=== PATIENT | male | born 1995 | race Caucasian/White ===

== ENCOUNTER 2020-02-18 08:29 | Emergency (ER) | payer OTHER ==
[2020-02-18 08:48] VITALS: BP 157/118; PULSE 100
--- NOTE | 2020-02-18 08:50 | EDM.PDOC ---
ED HPI GENERAL MEDICAL PROBLEM - General Chief Complaint: Respiratory Problem Stated Complaint: COUGH/TESTED AT CLINIC FOR COVID/RESULTS NOT BACK Time Seen by Provider: 02/18/20 08:49 Source of Information: Reports: Patient History Limitations: Reports: No Limitations - History of Present Illness INITIAL COMMENTS - FREE TEXT/NARRATIVE: 24-year-old male attends the ED at the request of walk-in clinic. He was seen there 2 days ago with a paroxysmal nonproductive cough that is had for the better part of 10 days. He states he was out in [place] 3 weeks ago working and felt that his allergies flared up badly at that time by this he means marked nasal congestion and itching of his eyes but no true asthma symptoms with wheezing. He has no history of asthma. He was given a codeine cough syrup which is not helping control his cough. This morning he coughed so hard he nearly passed out. Patient did have a COVID screen done 2 days ago and it was a send out by [facility] system he has not received the results yet. He does not know that he was been exposed to COVID by anybody. He has had some chills but no defined fever. Appetite remains half of normal. He is not expectorating any sputum. No hemoptysis. No diarrhea no change in smell. He never had a sore throat with at any time during this illness. Nasal congestion seems to be better. Onset: Gradual Onset Date: 02/12/20 (Has been coughing for the better part of a week.) Duration: Day(s):, Getting Worse Location: Reports: Chest (Severe paroxysmal nonproductive cough.) Quality: Reports: Other (Very paroxysmal cough to the point of near syncope this morning.) Severity: Moderate Improves with: Reports: None Worsens with: Reports: Other (Cough seemed to get worse while he was in the shower this morning.) Context: Denies: Activity, Exercise, Lifting, Sick Contact, Trauma, Other Associated Symptoms: Reports: Cough, Loss of Appetite, Malaise, Shortness of B reath. Denies: No Other Symptoms, Confusion, Chest Pain (Nonproductive), cough w sputum, Diaphoresis, Fever/Chills, Headaches, Nausea/Vomiting, Rash, Seizure, Syncope, Weakness Treatments [employer]OR: Reports: Other (see below) (None.) - Related Data Allergies Allergy/AdvReac Type Severity Reaction Status Date / Time No Known Allergies Allergy Verified 02/18/20 08:48 Home Meds: Home Meds Hydrocodone/Chlorphen P-Stirex [Hydrocodone-Chlorphen ER Susp] 5 ml PO Q12H PRN #90 ml 02/18/20 [Rx] Past Medical History - Past Health History Medical/Surgical History: Denies Medical/Surgical History Other HEENT History: tongue swelling ? allergic reaction Social & Family History - Living Situation & Occupation Occupation: Student ED ROS GENERAL - Review of Systems Review Of Systems: See Below Constitutional: Reports: Fever, Chills ([place]sey is an intermittent low-grade fever), Malaise ( occasional chills.), Fatigue, Decreased Appetite, Other (Change in sense of smell.). Denies: Weakness, Weight Loss HEENT: Reports: Rhinitis (Allergic rhinitis.) Respiratory: Reports: Shortness of Breath, Cough. Denies: Wheezing, Pleuritic Chest Pain, Sputum, Hemoptysis (Your paroxysmal nonproductive cough.) Cardiovascular: Reports: Chest Pain (Enteral upper chest pain from coughing so much.). Denies: Blood Pressure Problem, Claudication (Blood pressure is markedly elevated in the ED at 157 118. Patient is not known to be hypertensive.), Orthopnea Endocrine: Reports: Fatigue GI/Abdominal: Reports: No Symptoms : Reports: No Symptoms Musculoskeletal: Reports: No Symptoms Skin: Reports: No Symptoms Neurological: Reports: No Symptoms. Denies: Confusion, Dizziness, Headache, Numbness, Pre-Existing Deficit, Seizure, Syncope, Trouble Speaking, Difficulty Walking, Weakness Psychiatric: Reports: No Symptoms Hematologic/Lymphatic: Reports: No Symptoms Immunologic: Reports: No Symptoms ED EXAM, GENERAL - Physical Exam Exam: See Below Exam Limited By: No Limitations General Appearance: Alert, WD/WN, No Apparent Distress, Other (Temperature is 36.4. Heart rate 100 and sinus. Respiratory is 18 sats are only 94% on room air. BP 157 118 but it did come down to 146/89.) Eye Exam: Bilateral Eye: Normal Inspection, PERRL (No scleral icterus or blepharal pallor.) Ears: Normal TMs Throat/Mouth: Normal Inspection, Normal Lips, Normal Teeth, Normal Oropharynx Head: Atraumatic, Normocephalic Neck: Normal Inspection, Supple, Non-Tender, Full Range of Motion. No: Carotid Bruit, Lymphadenopathy (L), Lymphadenopathy (R) Respiratory/Chest: No Respiratory Distress, No Accessory Muscle Use, Rhonchi (Fine rhonchi particularly posterior right upper lung field.). No: Lungs Clear, Normal Breath Sounds, Chest Non-Tender, Wheezing Cardiovascular: Normal Peripheral Pulses, Regular Rate, Rhythm, No Edema, No Gallop, No Murmur, No Rub Peripheral Pulses: 3+: Carotid (L), Carotid (R), Posterior Tibial (L), Posterior Tibial (R), Dorsalis Pedis (L), Dorsalis Pedis (R) GI/Abdominal: Normal Bowel Sounds, Soft, Non-Tender, No Organomegaly, No Abnormal Bruit, No Mass, Pelvis Stable, Other (Very large fellow. Abdominal girth limits ability to palpate solid organs.). No: Guarding, Rigid, Rebound, Tender Back Exam: Normal Inspection, Full Range of Motion. No: CVA Tenderness (L), CVA Tenderness (R) Extremities: Normal Inspection, Normal Range of Motion, Non-Tender, No Pedal Edema Neurological: Alert, Oriented, CN II-XII Intact, Normal Cognition Psychiatric: Normal Affect, Normal Mood Skin Exam: Warm, Dry, Intact, Normal Color, No Rash EKG INTERPRETATION EKG Date: 02/18/20 Time: 09:48 Rhythm: Other Rate (Beats/Min): 105 Catron: LAD-Left Catron Deviation (Left axis deviation of -79 degrees) P-Wave: Present QRS: Other (Decreased voltage precordial leads. RSR prime wave in V1 considered normal variant. Consider left anterior fascicular block.) ST-T: Normal QT: Normal EKG Interpretation Comments: Abnormal ECG Course - Vital Signs Last Recorded V/S: Last Vital Signs Temp 36.4 C 02/18/20 08:45 Pulse 100 02/18/20 08:45 Resp 18 02/18/20 08:45 BP 157/118 H 02/18/20 08:45 Pulse Ox 94 L 02/18/20 08:45 - Orders/Labs/Meds Orders: Active Orders 24 hr Category Date Time Status EKG Documentation Completion [RC] STAT Care 02/18/20 09:01 Active CULTURE BLOOD [BC] Stat Lab 02/18/20 09:22 Received CULTURE BLOOD [BC] Stat Lab 02/18/20 09:41 Received Dextrose 5%-0.9% NaCl [Dextrose 5%-Normal Saline] 1,000 Med 02/18/20 09:00 Active ml IV ASDIRECTED Blood Culture x2 Reflex Set [OM.PC] Stat Oth 02/18/20 09:00 Ordered Medication Orders Dextrose/Sodium Chloride (Dextrose 5%-Normal Saline) 1,000 mls @ 150 mls/hr IV ASDIRECTED [facility] Labs: Laboratory Tests 02/18/20 02/18/20 02/18/20 Range/Units 09:22 09:22 09:22 WBC 4.98 (4.23-9.07) K/mm3 RBC 5.71 (4.63-6.08) M/mm3 Hgb 16.1 (13.7-17.5) gm/dl Hct 48.6 (40.1-51.0) % MCV 85.1 (79.0-92.2) fl MCH 28.2 (25.7-32.2) pg MCHC 33.1 (32.2-35.5) g/dl RDW Std Deviation 41.9 (35.1-43.9) fL Plt Count 145 L (163-337) K/mm3 MPV 11.2 (9.4-12.3) fl Neut % (Auto) 70.5 H (34.0-67.9) % Lymph % (Auto) 15.9 L (21.8-53.1) % [place] % (Auto) 12.4 H (5.3-12.2) % Eos % (Auto) 0.8 (0.8-7.0) Baso % (Auto) 0.4 (0.1-1.2) % Neut # (Auto) 3.51 (1.78-5.38) K/mm3 Lymph # (Auto) 0.79 L (1.32-3.57) K/mm3 [place] # (Auto) 0.62 (0.30-0.82) K/mm3 Eos # (Auto) 0.04 (0.04-0.54) K/mm3 Baso # (Auto) 0.02 (0.01-0.08) K/mm3 D-Dimer, Quantitative < 0.19 L (0.19-0.50) mg/L Sodium 137 (136-145) mEq/L Potassium 4.2 (3.5-5.1) mEq/L Chloride 101 (98-107) mEq/L Carbon Dioxide 32 (21-32) mEq/L Anion Gap 8.2 (5-15) BUN 5 L (7-18) mg/dL Creatinine 1.0 (0.7-1.3) mg/dL Est Cr Clr Drug Dosing TNP Estimated GFR (MDRD) > 60 (>60) mL/min BUN/Creatinine Ratio 5.0 L (14-18) Glucose 135 H (74-106) mg/dL Calcium 8.5 (8.5-10.1) mg/dL Magnesium 2.0 (1.8-2.4) mg/dl Ferritin (26-388) ng/ml Total Bilirubin 0.6 (0.2-1.0) mg/dL AST 30 (15-37) U/L ALT 50 (16-63) U/L Alkaline Phosphatase 50 (46-116) U/L Lactate Dehydrogenase 234 H (85-227) U/L Troponin I < 0.017 (0.00-0.056) ng/mL C-Reactive Protein 2.8 H* (<1.0) mg/dL Total Protein 7.5 (6.4-8.2) g/dl Albumin 3.7 (3.4-5.0) g/dl Globulin 3.8 gm/dL Albumin/Globulin Ratio 1.0 (1-2) SARS Virus RNA (PCR) (NEGATIVE) 02/18/20 02/18/20 Range/Units 09:22 09:45 WBC (4.23-9.07) K/mm3 RBC (4.63-6.08) M/mm3 Hgb (13.7-17.5) gm/dl Hct (40.1-51.0) % MCV (79.0-92.2) fl MCH (25.7-32.2) pg MCHC (32.2-35.5) g/dl RDW Std Deviation (35.1-43.9) fL Plt Count (163-337) K/mm3 MPV (9.4-12.3) fl Neut % (Auto) (34.0-67.9) % Lymph % (Auto) (21.8-53.1) % [place] % (Auto) (5.3-12.2) % Eos % (Auto) (0.8-7.0) Baso % (Auto) (0.1-1.2) % Neut # (Auto) (1.78-5.38) K/mm3 Lymph # (Auto) (1.32-3.57) K/mm3 [place] # (Auto) (0.30-0.82) K/mm3 Eos # (Auto) (0.04-0.54) K/mm3 Baso # (Auto) (0.01-0.08) K/mm3 D-Dimer, Quantitative (0.19-0.50) mg/L Sodium (136-145) mEq/L Potassium (3.5-5.1) mEq/L Chloride (98-107) mEq/L Carbon Dioxide (21-32) mEq/L Anion Gap (5-15) BUN (7-18) mg/dL Creatinine (0.7-1.3) mg/dL Est Cr Clr Drug Dosing Estimated GFR (MDRD) (>60) mL/min BUN/Creatinine Ratio (14-18) Glucose (74-106) mg/dL Calcium (8.5-10.1) mg/dL Magnesium (1.8-2.4) mg/dl Ferritin 232 (26-388) ng/ml Total Bilirubin (0.2-1.0) mg/dL AST (15-37) U/L ALT (16-63) U/L Alkaline Phosphatase (46-116) U/L Lactate Dehydrogenase (85-227) U/L Troponin I (0.00-0.056) ng/mL C-Reactive Protein (<1.0) mg/dL Total Protein (6.4-8.2) g/dl Albumin (3.4-5.0) g/dl Globulin gm/dL Albumin/Globulin Ratio (1-2) SARS Virus RNA (PCR) Positive H (NEGATIVE) Meds: Medications Generic Name Dose Route Start Last Admin Trade Name Freq PRN Reason Stop Dose Admin Dextrose/Sodium Chloride 1,000 mls @ 150 mls/hr 02/18/20 09:00 Dextrose 5%-Normal Saline IV ASDIRECTED [facility] - Radiology Interpretation Free Text/Narrative:: 24-year-old male presents to the ED with a 6-day history of a paroxysmal cough which is worsening. Coughed so hard this morning that he nearly passed out. He was seen in the walk-in clinic 2 days ago at [facility] and did have a COVID screen test sent out. He does not yet know the results. He has no history of asthma. He is not bringing up any sputum with his cough. Sats are 94% on room air. He is not in any respiratory distress. Lungs sounds are revealing of a few crackles in the right upper base and a few rhonchi. Nose and throat exam is otherwise normal. Plan COVID screen. Chest x-ray 1 view to be done. Routine labs to be obtained including blood cultures x2 looking for COVID illness. - Re-Assessments/Exams Free Text/Narrative Re-Assessment/Exam: 02/18/20 09:39 audible chest x-ray done but is relatively poor quality due to the patient's size. There is questionably an infiltrate in the right upper lobe in the posterior segment. There is questionable left perihilar infiltrate as well suggesting early pneumonia. Cardiac silhouette is normal. 02/18/20 10:16 White count is normal at 4.98. Differential shows 70.5% neutrophils in the auto differential. Hemoglobin is 16.1 with hematocrit of 48.6 suggesting some degree of hemoconcentration. Platelet counts 145,000. D- dimer is less than 0.19. Sodium 137 with a potassium of 4.2. Chloride 101 with a bicarb of 32. Anion gap is 8.2. BUN is 5 with a creatinine of 1.0 and a GFR greater than 60. Glucose is 135. Calcium is 8.5. Magnesium is 2.0. Serum ferritin level is normal at 232. Liver function studies are normal. LDH is mildly elevated at 234 with upper limits in our lab at 227. Troponin I is less than 0.017. C-reactive protein is 2.8. COVID test is pending 02/18/20 10:46 Covid test is positive. Departure - Departure Time of Disposition: 11:08 Disposition: Home, Self-Care 01 Condition: Fair Clinical Impression: COVID-19 virus detected Pneumonia Qualifiers: Pneumonia type: due to unspecified organism Laterality: bilateral Lung location: upper lobe of lung Qualified Code(s): J18.9 - Pneumonia, unspecified organism - Discharge Information *PRESCRIPTION DRUG MONITORING PROGRAM REVIEWED*: Not Applicable *COPY OF PRESCRIPTION DRUG MONITORING REPORT IN PATIENT KIRSTY: Not Applicable Prescriptions: Hydrocodone/Chlorphen P-Stirex [Hydrocodone-Chlorphen ER Susp] 5 ml PO Q12H PRN #90 ml PRN Reason: cough relief Instructions: COVID-19 Frequently Asked Questions, COVID-19: How to Protect Yourself and Others - [facility] Referrals: PCP,None [Primary Care Provider] - Forms: ED Department Discharge, ED Return to Work/School Form Additional Instructions: Evaluation in the emergency room today in regards to severe paroxysmal cough and low-grade fever for the last 2 to 3 days. No relief with codeine-based cough syrup. X-ray of the chest reveals early pneumonia in the upper lobes of both lungs. COVID 19 test was positive for infection the remainder the labs were normal. Treatment is to be self quarantined for the next 12 days since you have had the illness for 2 days already. Normal quarantine is 14 days. You can use cough syrup [place] 5 mils every 12 hours as necessary for cough relief. Due to your size you may well need to 7.5 mils twice daily for cough relief. It usually takes an hour to work so plan on taking a good hour before lying down to sleep. Plenty of fluids diet as tolerated. Return to medical care if shortness of breath worsens or you get to the point where you cannot eat or drink. Sepsis Event Note (ED) - Evaluation Sepsis Screening Result: No Definite Risk - Focused Exam Vital Signs: Vital Signs Temp Pulse Resp BP Pulse Ox 02/18/20 08:45 36.4 C 100 18 157/118 H 94 L - My Orders Last 24 Hours: My Active Orders 02/18/20 09:00 Dextrose 5%-0.9% NaCl [Dextrose 5%-Normal Saline] 1,000 ml IV ASDIRECTED Blood Culture x2 Reflex Set [OM.PC] Stat 02/18/20 09:01 EKG Documentation Completion [RC] STAT 02/18/20 09:22 CULTURE BLOOD [BC] Stat 02/18/20 09:41 CULTURE BLOOD [BC] Stat - Assessment/Plan Last 24 Hours: My Active Orders 02/18/20 09:00 Dextrose 5%-0.9% NaCl [Dextrose 5%-Normal Saline] 1,000 ml IV ASDIRECTED Blood Culture x2 Reflex Set [OM.PC] Stat 02/18/20 09:01 EKG Documentation Completion [RC] STAT 02/18/20 09:22 CULTURE BLOOD [BC] Stat 02/18/20 09:41 CULTURE BLOOD [BC] Stat
[2020-02-18] MEDS ORDERED: Dextrose 5%-0.9% NaCl 1,000 ML IV SCH (09:00)
--- NOTE | 2020-02-18 09:50 | CR ---
Chest: Portable view of the chest was obtained. Comparison: No previous chest x-rays available. Heart size and mediastinum are normal. Patchy areas of increased density on both sides of chest. Lungs otherwise are clear. Bony structures are unremarkable. Impression: 1. Patchy areas of increased density within both sides of the chest. Findings could certainly represent early viral pneumonia. Diagnostic code #3 Study was dictated in MDT
== END 2020-02-18 11:24 | disposition home or self-care (01) ==
LOC: JD.ED 08:29
DX: U07.1 COVID-19 (principal); J12.89 Other viral pneumonia
CPT/HCPCS: 36415; 71045; 71045-26; 80053; 82728; 83615; 83735; 84484; 85025; 85379; 86140; 87040; 93005; 93010; 99283; 99284-25; U0002

== ENCOUNTER 2020-02-19 20:24 | Inpatient (IN) | payer OTHER ==
--- NOTE | 2020-02-19 20:37 | EDM.PDOC ---
ED HPI GENERAL MEDICAL PROBLEM - General Chief Complaint: Respiratory Problem Stated Complaint: COVID POS FEVER WORSE Time Seen by Provider: 02/19/20 20:37 - History of Present Illness INITIAL COMMENTS - FREE TEXT/NARRATIVE: 24-year-old male presents the emergency room with increasing fever. Patient was seen here yesterday with for 5-day history of of a cough and fever. Up until yesterday his COVID tested been negative yesterday it was positive. Today he is worried about increasing fever. Upon arrival here he is pushing hypoxia with a pulse ox of 88%. This responds to 3 L of oxygen. Getting him to 96%. Patient has a frequent cough. Patient denies any loss of taste or smell no abdominal symptoms, nausea vomiting or diarrhea. He does not smoke. 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 Chest Pain Score (Numeric/FACES): 7 - Related Data Allergies Allergy/AdvReac Type Severity Reaction Status Date / Time No Known Allergies Allergy Verified 02/19/20 20:40 Home Meds: Home Meds Hydrocodone/Chlorphen P-Stirex [Hydrocodone-Chlorphen ER Susp] 5 ml PO Q12H PRN #90 ml 02/18/20 [Rx] Past Medical History - Past Health History Medical/Surgical History: Denies Medical/Surgical History Other HEENT History: tongue swelling ? allergic reaction Social & Family History - Caffeine Use Caffeine Use: Reports: Soda - Living Situation & Occupation Occupation: Student ED ROS GENERAL - Review of Systems Review Of Systems: See Below Constitutional: Reports: Fever, Weakness, Fatigue. Denies: Chills HEENT: Reports: No Symptoms, Rhinitis Respiratory: Reports: Shortness of Breath, Cough. Denies: Wheezing, Pleuritic Chest Pain, Sputum Cardiovascular: Reports: No Symptoms Endocrine: Reports: No Symptoms GI/Abdominal: Reports: No Symptoms : Reports: No Symptoms Musculoskeletal: Reports: No Symptoms Skin: Reports: No Symptoms Neurological: Reports: No Symptoms ED EXAM, GENERAL - Physical Exam Exam: See Below Exam Limited By: No Limitations General Appearance: Alert, No Apparent Distress, Obese Eye Exam: Bilateral Eye: Normal Inspection Ears: Normal External Exam, Normal Canal, Hearing Grossly Normal, Normal TMs Nose: Normal Inspection, Normal Mucosa, No Blood Throat/Mouth: Normal Inspection, Normal Lips, Normal Teeth, Normal Gums, Normal Oropharynx, Normal Voice, No Airway Compromise Head: Atraumatic, Normocephalic Neck: Normal Inspection, Supple, Non-Tender, Full Range of Motion. No: Lymphadenopathy (L), Lymphadenopathy (R) Respiratory/Chest: Decreased Breath Sounds, Other (Few scattered crackles no wheezes or rhonchi appreciated) GI/Abdominal: Normal Bowel Sounds, Soft, Non-Tender Back Exam: Normal Inspection. No: CVA Tenderness (L), CVA Tenderness (R) Extremities: Normal Inspection, No Pedal Edema Neurological: Alert, Oriented, Normal Cognition Skin Exam: Warm, Dry, Intact Course - Vital Signs Last Recorded V/S: Last Vital Signs Temp 35.5 C L 02/19/20 20:35 Pulse 128 H 02/19/20 20:35 Resp 16 02/19/20 20:35 BP 137/70 02/19/20 20:35 Pulse Ox 92 L 02/19/20 20:43 - Orders/Labs/Meds Orders: Active Orders 24 hr Category Date Time Status Chest 1V Frontal [CR] Stat Exams 02/19/20 20:58 Taken CBC WITH MANUAL DIFF [HEME] Stat Lab 02/19/20 20:45 Results Labs: Laboratory Tests 02/19/20 02/19/20 02/19/20 Range/Units 20:45 20:45 20:45 WBC 5.42 (4.23-9.07) K/mm3 Corrected WBC RBC 5.87 (4.63-6.08) M/mm3 Hgb 16.5 (13.7-17.5) gm/dl Hct 49.4 (40.1-51.0) % MCV 84.2 (79.0-92.2) fl MCH 28.1 (25.7-32.2) pg MCHC 33.4 (32.2-35.5) g/dl RDW Std Deviation 40.8 (35.1-43.9) fL Plt Count 157 L (163-337) K/mm3 MPV 11.4 (9.4-12.3) fl Neut % (Auto) 57.3 (34.0-67.9) % Lymph % (Auto) 28.6 (21.8-53.1) % [place] % (Auto) 12.0 (5.3-12.2) % Eos % (Auto) 1.3 (0.8-7.0) Baso % (Auto) 0.4 (0.1-1.2) % Neut # (Auto) 3.11 (1.78-5.38) K/mm3 Lymph # (Auto) 1.55 (1.32-3.57) K/mm3 [place] # (Auto) 0.65 (0.30-0.82) K/mm3 Eos # (Auto) 0.07 (0.04-0.54) K/mm3 Baso # (Auto) 0.02 (0.01-0.08) K/mm3 Neutrophils % (Manual) (40-60) % Band Neutrophils % (0-10) % Lymphocytes % (Manual) (20-40) % Atypical Lymphs % % Monocytes % (Manual) (2-10) % Eosinophils % (Manual) (0.8-7.0) % Basophils % (Manual) (0.2-1.2) Manual Slide Review Platelet Estimate RBC Morph Comment D-Dimer, Quantitative 0.22 (0.19-0.50) mg/L Puncture Site ABG pH (7.35-7.45) ABG pCO2 (35.0-45.0) mmHg ABG pO2 (80.0-100.0) mmHg ABG HCO3 (22.0-26.0) meq/L ABG O2 Saturation (96.0-97.0) % ABG Base Excess (-2-2.0) Giovany Test O2 Delivery Device Oxygen Flow Rate Sodium 137 (136-145) mEq/L Potassium 3.9 (3.5-5.1) mEq/L Chloride 100 (98-107) mEq/L Carbon Dioxide 28 (21-32) mEq/L Anion Gap 12.9 (5-15) BUN 4 L (7-18) mg/dL Creatinine 1.0 (0.7-1.3) mg/dL Est Cr Clr Drug Dosing 121.32 mL/min Estimated GFR (MDRD) > 60 (>60) mL/min BUN/Creatinine Ratio 4.0 L (14-18) Glucose 118 H (74-106) mg/dL Calcium 8.6 (8.5-10.1) mg/dL Magnesium 1.8 (1.8-2.4) mg/dl Ferritin (26-388) ng/ml Total Bilirubin 0.6 (0.2-1.0) mg/dL AST 43 H (15-37) U/L ALT 74 H (16-63) U/L Alkaline Phosphatase 51 (46-116) U/L Lactate Dehydrogenase (85-227) U/L Creatine Kinase (39-308) U/L Troponin I < 0.017 (0.00-0.056) ng/mL C-Reactive Protein 4.1 H* (<1.0) mg/dL Total Protein 7.9 (6.4-8.2) g/dl Albumin 3.8 (3.4-5.0) g/dl Globulin 4.1 gm/dL Albumin/Globulin Ratio 0.9 L (1-2) Mycoplasma pneumon IgM (NEGATIVE) 02/19/20 02/19/20 02/19/20 Range/Units 20:45 20:45 20:45 WBC (4.23-9.07) K/mm3 Corrected WBC RBC (4.63-6.08) M/mm3 Hgb (13.7-17.5) gm/dl Hct (40.1-51.0) % MCV (79.0-92.2) fl MCH (25.7-32.2) pg MCHC (32.2-35.5) g/dl RDW Std Deviation (35.1-43.9) fL Plt Count (163-337) K/mm3 MPV (9.4-12.3) fl Neut % (Auto) (34.0-67.9) % Lymph % (Auto) (21.8-53.1) % [place] % (Auto) (5.3-12.2) % Eos % (Auto) (0.8-7.0) Baso % (Auto) (0.1-1.2) % Neut # (Auto) (1.78-5.38) K/mm3 Lymph # (Auto) (1.32-3.57) K/mm3 [place] # (Auto) (0.30-0.82) K/mm3 Eos # (Auto) (0.04-0.54) K/mm3 Baso # (Auto) (0.01-0.08) K/mm3 Neutrophils % (Manual) 67 H (40-60) % Band Neutrophils % 0 (0-10) % Lymphocytes % (Manual) 27 (20-40) % Atypical Lymphs % 0 % Monocytes % (Manual) 6 (2-10) % Eosinophils % (Manual) 0 L (0.8-7.0) % Basophils % (Manual) 0 L (0.2-1.2) Manual Slide Review Platelet Estimate Adequate RBC Morph Comment Normal D-Dimer, Quantitative (0.19-0.50) mg/L Puncture Site ABG pH (7.35-7.45) ABG pCO2 (35.0-45.0) mmHg ABG pO2 (80.0-100.0) mmHg ABG HCO3 (22.0-26.0) meq/L ABG O2 Saturation (96.0-97.0) % ABG Base Excess (-2-2.0) Giovany Test O2 Delivery Device Oxygen Flow Rate Sodium (136-145) mEq/L Potassium (3.5-5.1) mEq/L Chloride (98-107) mEq/L Carbon Dioxide (21-32) mEq/L Anion Gap (5-15) BUN (7-18) mg/dL Creatinine (0.7-1.3) mg/dL Est Cr Clr Drug Dosing mL/min Estimated GFR (MDRD) (>60) mL/min BUN/Creatinine Ratio (14-18) Glucose (74-106) mg/dL Calcium (8.5-10.1) mg/dL Magnesium (1.8-2.4) mg/dl Ferritin 285 (26-388) ng/ml Total Bilirubin (0.2-1.0) mg/dL AST (15-37) U/L ALT (16-63) U/L Alkaline Phosphatase (46-116) U/L Lactate Dehydrogenase 325 H (85-227) U/L Creatine Kinase 344 H (39-308) U/L Troponin I (0.00-0.056) ng/mL C-Reactive Protein (<1.0) mg/dL Total Protein (6.4-8.2) g/dl Albumin (3.4-5.0) g/dl Globulin gm/dL Albumin/Globulin Ratio (1-2) Mycoplasma pneumon IgM (NEGATIVE) 02/19/20 02/19/20 02/19/20 Range/Units 20:45 21:05 21:20 WBC Cancelled (4.23-9.07) K/mm3 Corrected WBC Cancelled RBC Cancelled (4.63-6.08) M/mm3 Hgb Cancelled (13.7-17.5) gm/dl Hct Cancelled (40.1-51.0) % MCV Cancelled (79.0-92.2) fl MCH Cancelled (25.7-32.2) pg MCHC Cancelled (32.2-35.5) g/dl RDW Std Deviation Cancelled (35.1-43.9) fL Plt Count Cancelled (163-337) K/mm3 MPV Cancelled (9.4-12.3) fl Neut % (Auto) Cancelled (34.0-67.9) % Lymph % (Auto) Cancelled (21.8-53.1) % [place] % (Auto) Cancelled (5.3-12.2) % Eos % (Auto) Cancelled (0.8-7.0) Baso % (Auto) Cancelled (0.1-1.2) % Neut # (Auto) Cancelled (1.78-5.38) K/mm3 Lymph # (Auto) Cancelled (1.32-3.57) K/mm3 [place] # (Auto) Cancelled (0.30-0.82) K/mm3 Eos # (Auto) Cancelled (0.04-0.54) K/mm3 Baso # (Auto) Cancelled (0.01-0.08) K/mm3 Neutrophils % (Manual) (40-60) % Band Neutrophils % (0-10) % Lymphocytes % (Manual) (20-40) % Atypical Lymphs % % Monocytes % (Manual) (2-10) % Eosinophils % (Manual) (0.8-7.0) % Basophils % (Manual) (0.2-1.2) Manual Slide Review Cancelled Platelet Estimate RBC Morph Comment D-Dimer, Quantitative (0.19-0.50) mg/L Puncture Site Lt radial ABG pH 7.44 (7.35-7.45) ABG pCO2 39.6 (35.0-45.0) mmHg ABG pO2 73.0 L (80.0-100.0) mmHg ABG HCO3 26.3 H (22.0-26.0) meq/L ABG O2 Saturation 94.5 L (96.0-97.0) % ABG Base Excess 2.5 H (-2-2.0) Giovany Test Positive O2 Delivery Device Nasal cannula Oxygen Flow Rate 2.0 Sodium (136-145) mEq/L Potassium (3.5-5.1) mEq/L Chloride (98-107) mEq/L Carbon Dioxide (21-32) mEq/L Anion Gap (5-15) BUN (7-18) mg/dL Creatinine (0.7-1.3) mg/dL Est Cr Clr Drug Dosing mL/min Estimated GFR (MDRD) (>60) mL/min BUN/Creatinine Ratio (14-18) Glucose (74-106) mg/dL Calcium (8.5-10.1) mg/dL Magnesium (1.8-2.4) mg/dl Ferritin (26-388) ng/ml Total Bilirubin (0.2-1.0) mg/dL AST (15-37) U/L ALT (16-63) U/L Alkaline Phosphatase (46-116) U/L Lactate Dehydrogenase (85-227) U/L Creatine Kinase (39-308) U/L Troponin I (0.00-0.056) ng/mL C-Reactive Protein (<1.0) mg/dL Total Protein (6.4-8.2) g/dl Albumin (3.4-5.0) g/dl Globulin gm/dL Albumin/Globulin Ratio (1-2) Mycoplasma pneumon IgM Negative (NEGATIVE) - Re-Assessments/Exams Free Text/Narrative Re-Assessment/Exam: 02/19/20 23:16 Chest x-ray shows a typical COVID pattern worse than yesterday. Labs and ABGs as stated above. Case discussed with Dr. Devlin, our hospitalist, who will admit. Holding orders written. Departure - Departure Time of Disposition: 23:17 Disposition: Admitted As Inpatient 66 Clinical Impression: COVID-19, Hypoxia - Discharge Information Forms: ED Department Discharge Sepsis Event Note (ED) - Focused Exam Vital Signs: Vital Signs Temp Pulse Resp BP Pulse Ox Pulse Ox 02/19/20 20:43 92 L 02/19/20 20:35 35.5 C L 128 H 16 137/70 89 L - My Orders Last 24 Hours: My Active Orders 02/19/20 20:45 CBC WITH MANUAL DIFF [HEME] Stat 02/19/20 20:58 Chest 1V Frontal [CR] Stat - Assessment/Plan Last 24 Hours: My Active Orders 02/19/20 20:45 CBC WITH MANUAL DIFF [HEME] Stat 02/19/20 20:58 Chest 1V Frontal [CR] Stat
[2020-02-20] MEDS: Acetaminophen 325 MG Tab PO PRN ×2 (03:36→12:46)
--- NOTE | 2020-02-20 07:36 | PCM.HP.2 ---
H&P History of Present Illness - General Date of Service: 02/20/20 Admit Problem/Dx: Admission Diagnosis/Problem Admission Diagnosis/Problem Acute hypoxic respiratory failure, COVID-19 Pneumonia Source of Information: Patient - History of Present Illness Initial Comments - Free Text/Narative: The patient is a 24 y/o male, nondeclared PCP with PMH of sleep apnea and morbid obesity, presented to the ED on 02/17 and tested positive for COVID- 19, was discharged to home to isolate. On 02/19, patient developed worsening cough, shortness of breath, feeling anxious and presented to ED again. For the last week, patient has had diarrhea, runny nose and some sinus congestion. The cough started on Thursday and has gotten progressively worse. He feels like his chest is tight and he can't take deep breaths without having cough attacks. Denies sputum production but feels like he has something to cough up, just isn't able. He denies changes in taste, no headache or dizziness. He denies chest pain, more of a tightness at left lower lung. He has had fevers up to 102 degrees at home. He has taken cough medicine at home but otherwise no medications. In the ED, patient was found to be hypoxic on room air, O2 saturation 88% and was placed on 3L by ND to keep O2 saturation >93%. He does not use oxygen at home. Otherwise, pulse was 126, RR 16, temp 35.5 celsius. WBC normal, CRP 4.1, LDH 325, d-dimer normal, ferritin normal, CK 415, troponin I 0.017, Chest X-ray showed worsening bilateral atypical pneumonia. Chest Pain Score (Numeric/FACES): 0 - Related Data Allergies/Adverse Reactions: Allergies Allergy/AdvReac Type Severity Reaction Status Date / Time No Known Allergies Allergy Verified 02/19/20 20:40 Home Medications: Home Meds Hydrocodone/Chlorphen P-Stirex [Hydrocodone-Chlorphen ER Susp] 5 ml PO Q12H PRN #90 ml 02/18/20 [Rx] Past Medical History - Past Health History Medical/Surgical History: Denies Medical/Surgical History Other HEENT History: tongue swelling ? allergic reaction - Infectious Disease History Infectious Disease History: Reports: Novel Coronavirus Social & Family History - Family History Family Medical History: Noncontributory - Tobacco Use Smoking Status *Q: Never Smoker Second Hand Smoke Exposure: No - Caffeine Use Caffeine Use: Reports: Soda - Alcohol Use Alcohol Use History: No - Recreational Drug Use Recreational Drug Use: No - Living Situation & Occupation Occupation: Student H&P Review of Systems - Review of Systems: Review Of Systems: See Below General: Reports: Fever, Chills, Weakness, Decreased Appetite HEENT: Reports: Sinus Congestion. Denies: Ear Pain, Headaches, Visual Changes Pulmonary: Reports: Shortness of Breath, Pleuritic Chest Pain, Cough. Denies: Sputum Cardiovascular: Reports: Dyspnea on Exertion. Denies: Chest Pain, Palpitations, Lightheadedness Gastrointestinal: Reports: Diarrhea, Nausea (when coughing too much). Denies: Abdominal Pain, Black Stool, Bloody Stool, Constipation Neurological: Denies: Confusion, Dizziness, Headache Exam - Exam Exam: See Below - Vital Signs Vital Signs: Last Vital Signs Temp 98.8 F 02/20/20 02:52 Pulse 116 H 02/19/20 23:45 Resp 24 H 02/20/20 02:52 BP 139/90 02/20/20 02:52 Pulse Ox 96 02/19/20 23:45 Weight: 342 lb - Exam General: Alert, Oriented, Moderate Distress (coughing anytime he tries to talk) HEENT: EOMI, Hearing Intact, Mucosa Moist & [place], Posterior Pharynx Clear, Pupils Equal, Pupils Reactive Neck: Supple, Trachea Midline. No: Lymphadenopathy Lungs: Decreased Breath Sounds, Crackles (Fine crackles- In lower lobes bilaterally) Cardiovascular: Regular Rhythm, Normal S1, Normal S2, Tachycardia (HR 116) GI/Abdominal Exam: Normal Bowel Sounds, Soft, Non-Tender, No Distention, Other (morbid obesity) Extremities: Normal Inspection, Non-Tender (Non tender calves ), No Pedal Edema, Normal Capillary Refill Peripheral Pulses: 2+: Posterior Tibial (L), Posterior Tibial (R) Skin: Warm, Dry, Intact Neuro Extensive - Mental Status: Alert, Oriented x3, Normal Mood/Affect, Memory Intact Psychiatric: Alert, Normal Affect, Normal Mood - Patient Data Lab Results Last 24 hrs: Laboratory Results - last 24 hr 02/19/20 02/19/20 02/19/20 Range/Units 20:45 20:45 20:45 WBC 5.42 (4.23-9.07) K/mm3 Corrected WBC RBC 5.87 (4.63-6.08) M/mm3 Hgb 16.5 (13.7-17.5) gm/dl Hct 49.4 (40.1-51.0) % MCV 84.2 (79.0-92.2) fl MCH 28.1 (25.7-32.2) pg MCHC 33.4 (32.2-35.5) g/dl RDW Std Deviation 40.8 (35.1-43.9) fL Plt Count 157 L (163-337) K/mm3 MPV 11.4 (9.4-12.3) fl Neut % (Auto) 57.3 (34.0-67.9) % Lymph % (Auto) 28.6 (21.8-53.1) % [place] % (Auto) 12.0 (5.3-12.2) % Eos % (Auto) 1.3 (0.8-7.0) Baso % (Auto) 0.4 (0.1-1.2) % Neut # (Auto) 3.11 (1.78-5.38) K/mm3 Lymph # (Auto) 1.55 (1.32-3.57) K/mm3 [place] # (Auto) 0.65 (0.30-0.82) K/mm3 Eos # (Auto) 0.07 (0.04-0.54) K/mm3 Baso # (Auto) 0.02 (0.01-0.08) K/mm3 Neutrophils % (Manual) (40-60) % Band Neutrophils % (0-10) % Lymphocytes % (Manual) (20-40) % Atypical Lymphs % % Monocytes % (Manual) (2-10) % Eosinophils % (Manual) (0.8-7.0) % Basophils % (Manual) (0.2-1.2) Manual Slide Review Platelet Estimate RBC Morph Comment D-Dimer, Quantitative 0.22 (0.19-0.50) mg/L Puncture Site ABG pH (7.35-7.45) ABG pCO2 (35.0-45.0) mmHg ABG pO2 (80.0-100.0) mmHg ABG HCO3 (22.0-26.0) meq/L ABG O2 Saturation (96.0-97.0) % ABG Base Excess (-2-2.0) Giovany Test O2 Delivery Device Oxygen Flow Rate Sodium 137 (136-145) mEq/L Potassium 3.9 (3.5-5.1) mEq/L Chloride 100 (98-107) mEq/L Carbon Dioxide 28 (21-32) mEq/L Anion Gap 12.9 (5-15) BUN 4 L (7-18) mg/dL Creatinine 1.0 (0.7-1.3) mg/dL Est Cr Clr Drug Dosing 121.32 mL/min Estimated GFR (MDRD) > 60 (>60) mL/min BUN/Creatinine Ratio 4.0 L (14-18) Glucose 118 H (74-106) mg/dL Calcium 8.6 (8.5-10.1) mg/dL Magnesium 1.8 (1.8-2.4) mg/dl Ferritin (26-388) ng/ml Total Bilirubin 0.6 (0.2-1.0) mg/dL AST 43 H (15-37) U/L ALT 74 H (16-63) U/L Alkaline Phosphatase 51 (46-116) U/L Lactate Dehydrogenase (85-227) U/L Creatine Kinase (39-308) U/L Troponin I < 0.017 (0.00-0.056) ng/mL C-Reactive Protein 4.1 H* (<1.0) mg/dL Total Protein 7.9 (6.4-8.2) g/dl Albumin 3.8 (3.4-5.0) g/dl Globulin 4.1 gm/dL Albumin/Globulin Ratio 0.9 L (1-2) Mycoplasma pneumon IgM (NEGATIVE) 02/19/20 02/19/20 02/19/20 Range/Units 20:45 20:45 20:45 WBC 5.42 (4.23-9.07) K/mm3 Corrected WBC RBC 5.87 (4.63-6.08) M/mm3 Hgb 16.5 (13.7-17.5) gm/dl Hct 49.4 (40.1-51.0) % MCV 84.2 (79.0-92.2) fl MCH 28.1 (25.7-32.2) pg MCHC 33.4 (32.2-35.5) g/dl RDW Std Deviation 40.8 (35.1-43.9) fL Plt Count 157 L (163-337) K/mm3 MPV 11.4 (9.4-12.3) fl Neut % (Auto) (34.0-67.9) % Lymph % (Auto) (21.8-53.1) % [place] % (Auto) (5.3-12.2) % Eos % (Auto) (0.8-7.0) Baso % (Auto) (0.1-1.2) % Neut # (Auto) (1.78-5.38) K/mm3 Lymph # (Auto) (1.32-3.57) K/mm3 [place] # (Auto) (0.30-0.82) K/mm3 Eos # (Auto) (0.04-0.54) K/mm3 Baso # (Auto) (0.01-0.08) K/mm3 Neutrophils % (Manual) 67 H (40-60) % Band Neutrophils % 0 (0-10) % Lymphocytes % (Manual) 27 (20-40) % Atypical Lymphs % 0 % Monocytes % (Manual) 6 (2-10) % Eosinophils % (Manual) 0 L (0.8-7.0) % Basophils % (Manual) 0 L (0.2-1.2) Manual Slide Review Platelet Estimate Adequate RBC Morph Comment Normal D-Dimer, Quantitative (0.19-0.50) mg/L Puncture Site ABG pH (7.35-7.45) ABG pCO2 (35.0-45.0) mmHg ABG pO2 (80.0-100.0) mmHg ABG HCO3 (22.0-26.0) meq/L ABG O2 Saturation (96.0-97.0) % ABG Base Excess (-2-2.0) Giovany Test O2 Delivery Device Oxygen Flow Rate Sodium (136-145) mEq/L Potassium (3.5-5.1) mEq/L Chloride (98-107) mEq/L Carbon Dioxide (21-32) mEq/L Anion Gap (5-15) BUN (7-18) mg/dL Creatinine (0.7-1.3) mg/dL Est Cr Clr Drug Dosing mL/min Estimated GFR (MDRD) (>60) mL/min BUN/Creatinine Ratio (14-18) Glucose (74-106) mg/dL Calcium (8.5-10.1) mg/dL Magnesium (1.8-2.4) mg/dl Ferritin 285 (26-388) ng/ml Total Bilirubin (0.2-1.0) mg/dL AST (15-37) U/L ALT (16-63) U/L Alkaline Phosphatase (46-116) U/L Lactate Dehydrogenase 325 H (85-227) U/L Creatine Kinase 344 H (39-308) U/L Troponin I (0.00-0.056) ng/mL C-Reactive Protein (<1.0) mg/dL Total Protein (6.4-8.2) g/dl Albumin (3.4-5.0) g/dl Globulin gm/dL Albumin/Globulin Ratio (1-2) Mycoplasma pneumon IgM (NEGATIVE) 02/19/20 02/19/20 02/19/20 Range/Units 20:45 21:05 21:20 WBC Cancelled (4.23-9.07) K/mm3 Corrected WBC Cancelled RBC Cancelled (4.63-6.08) M/mm3 Hgb Cancelled (13.7-17.5) gm/dl Hct Cancelled (40.1-51.0) % MCV Cancelled (79.0-92.2) fl MCH Cancelled (25.7-32.2) pg MCHC Cancelled (32.2-35.5) g/dl RDW Std Deviation Cancelled (35.1-43.9) fL Plt Count Cancelled (163-337) K/mm3 MPV Cancelled (9.4-12.3) fl Neut % (Auto) Cancelled (34.0-67.9) % Lymph % (Auto) Cancelled (21.8-53.1) % [place] % (Auto) Cancelled (5.3-12.2) % Eos % (Auto) Cancelled (0.8-7.0) Baso % (Auto) Cancelled (0.1-1.2) % Neut # (Auto) Cancelled (1.78-5.38) K/mm3 Lymph # (Auto) Cancelled (1.32-3.57) K/mm3 [place] # (Auto) Cancelled (0.30-0.82) K/mm3 Eos # (Auto) Cancelled (0.04-0.54) K/mm3 Baso # (Auto) Cancelled (0.01-0.08) K/mm3 Neutrophils % (Manual) (40-60) % Band Neutrophils % (0-10) % Lymphocytes % (Manual) (20-40) % Atypical Lymphs % % Monocytes % (Manual) (2-10) % Eosinophils % (Manual) (0.8-7.0) % Basophils % (Manual) (0.2-1.2) Manual Slide Review Cancelled Platelet Estimate RBC Morph Comment D-Dimer, Quantitative (0.19-0.50) mg/L Puncture Site Lt radial ABG pH 7.44 (7.35-7.45) ABG pCO2 39.6 (35.0-45.0) mmHg ABG pO2 73.0 L (80.0-100.0) mmHg ABG HCO3 26.3 H (22.0-26.0) meq/L ABG O2 Saturation 94.5 L (96.0-97.0) % ABG Base Excess 2.5 H (-2-2.0) Giovany Test Positive O2 Delivery Device Nasal cannula Oxygen Flow Rate 2.0 Sodium (136-145) mEq/L Potassium (3.5-5.1) mEq/L Chloride (98-107) mEq/L Carbon Dioxide (21-32) mEq/L Anion Gap (5-15) BUN (7-18) mg/dL Creatinine (0.7-1.3) mg/dL Est Cr Clr Drug Dosing mL/min Estimated GFR (MDRD) (>60) mL/min BUN/Creatinine Ratio (14-18) Glucose (74-106) mg/dL Calcium (8.5-10.1) mg/dL Magnesium (1.8-2.4) mg/dl Ferritin (26-388) ng/ml Total Bilirubin (0.2-1.0) mg/dL AST (15-37) U/L ALT (16-63) U/L Alkaline Phosphatase (46-116) U/L Lactate Dehydrogenase (85-227) U/L Creatine Kinase (39-308) U/L Troponin I (0.00-0.056) ng/mL C-Reactive Protein (<1.0) mg/dL Total Protein (6.4-8.2) g/dl Albumin (3.4-5.0) g/dl Globulin gm/dL Albumin/Globulin Ratio (1-2) Mycoplasma pneumon IgM Negative (NEGATIVE) 02/20/20 02/20/20 02/20/20 Range/Units 05:40 05:40 05:40 WBC 6.51 (4.23-9.07) K/mm3 Corrected WBC RBC 5.68 (4.63-6.08) M/mm3 Hgb 15.9 (13.7-17.5) gm/dl Hct 48.8 (40.1-51.0) % MCV 85.9 (79.0-92.2) fl MCH 28.0 (25.7-32.2) pg MCHC 32.6 (32.2-35.5) g/dl RDW Std Deviation 42.6 (35.1-43.9) fL Plt Count 148 L (163-337) K/mm3 MPV 11.6 (9.4-12.3) fl Neut % (Auto) (34.0-67.9) % Lymph % (Auto) (21.8-53.1) % [place] % (Auto) (5.3-12.2) % Eos % (Auto) (0.8-7.0) Baso % (Auto) (0.1-1.2) % Neut # (Auto) (1.78-5.38) K/mm3 Lymph # (Auto) (1.32-3.57) K/mm3 [place] # (Auto) (0.30-0.82) K/mm3 Eos # (Auto) (0.04-0.54) K/mm3 Baso # (Auto) (0.01-0.08) K/mm3 Neutrophils % (Manual) 70 H (40-60) % Band Neutrophils % 0 (0-10) % Lymphocytes % (Manual) 25 (20-40) % Atypical Lymphs % 0 % Monocytes % (Manual) 5 (2-10) % Eosinophils % (Manual) 0 L (0.8-7.0) % Basophils % (Manual) 0 L (0.2-1.2) Manual Slide Review Platelet Estimate Adequate RBC Morph Comment Normal D-Dimer, Quantitative < 0.19 L (0.19-0.50) mg/L Puncture Site ABG pH (7.35-7.45) ABG pCO2 (35.0-45.0) mmHg ABG pO2 (80.0-100.0) mmHg ABG HCO3 (22.0-26.0) meq/L ABG O2 Saturation (96.0-97.0) % ABG Base Excess (-2-2.0) Giovany Test O2 Delivery Device Oxygen Flow Rate Sodium 140 (136-145) mEq/L Potassium 4.4 (3.5-5.1) mEq/L Chloride 100 (98-107) mEq/L Carbon Dioxide 29 (21-32) mEq/L Anion Gap 15.4 H (5-15) BUN 7 (7-18) mg/dL Creatinine 1.1 (0.7-1.3) mg/dL Est Cr Clr Drug Dosing 110.29 mL/min Estimated GFR (MDRD) > 60 (>60) mL/min BUN/Creatinine Ratio 6.4 L (14-18) Glucose 123 H (74-106) mg/dL Calcium 8.7 (8.5-10.1) mg/dL Magnesium (1.8-2.4) mg/dl Ferritin (26-388) ng/ml Total Bilirubin 0.7 (0.2-1.0) mg/dL AST 37 (15-37) U/L ALT 65 H (16-63) U/L Alkaline Phosphatase 47 (46-116) U/L Lactate Dehydrogenase (85-227) U/L Creatine Kinase 415 H (39-308) U/L Troponin I < 0.017 (0.00-0.056) ng/mL C-Reactive Protein (<1.0) mg/dL Total Protein 7.7 (6.4-8.2) g/dl Albumin 3.7 (3.4-5.0) g/dl Globulin 4.0 gm/dL Albumin/Globulin Ratio 0.9 L (1-2) Mycoplasma pneumon IgM (NEGATIVE) Result Diagrams: 02/20/20 05:40 02/20/20 05:40 Sepsis Event Note - Evaluation Sepsis Screening Result: No Definite Risk - Focused Exam Vital Signs: Vital Signs Temp Temp Pulse Pulse Resp BP BP 02/20/20 02:52 98.8 F 24 H 139/90 02/19/20 23:45 97.0 F 116 H 16 150/95 H 02/19/20 20:43 02/19/20 20:35 95.9 F L 128 H 16 137/70 Pulse Ox Pulse Ox 02/20/20 02:52 02/19/20 23:45 96 02/19/20 20:43 92 L 02/19/20 20:35 89 L - Problem List (1) Acute respiratory failure with hypoxia SNOMED Code(s): 66518009, 382853462 ICD Code: J96.01 - ACUTE RESPIRATORY FAILURE WITH HYPOXIA Status: Acute Current Visit: Yes (2) Pneumonia due to COVID-19 virus SNOMED Code(s): 561397388 ICD Code: U07.1 - COVID-19; J12.89 - OTHER VIRAL PNEUMONIA Status: Acute Current Visit: Yes (3) Morbid obesity with BMI of 45.0-49.9, adult SNOMED Code(s): 410143062, 02865185497457 ICD Code: E66.01 - MORBID (SEVERE) OBESITY DUE TO EXCESS CALORIES; Z68.42 - BODY MASS INDEX (BMI) 45.0-49.9, ADULT Status: Acute Current Visit: Yes (4) Sleep apnea in adult SNOMED Code(s): 87514057 ICD Code: G47.30 - SLEEP APNEA, UNSPECIFIED Status: Acute Current Visit: Yes Problem List Initiated/Reviewed/Updated: Yes Orders Last 24hrs: Active Orders 24 hr Category Date Time Status Admission Status [Patient Status] [ADT] Routine ADT 02/19/20 23:09 Active RT Arterial Blood Gases, ABG [RC] Click to Edit Care 02/20/20 06:00 Active Up ad Daria [RC] ASDIRECTED Care 02/20/20 05:11 Active Regular Diet [DIET] Diet 02/20/20 Breakfast Active Chest 1V Frontal [CR] Stat Exams 02/19/20 20:58 Taken COMPREHENSIVE METABOLIC PN,CMP [CHEM] Routine Lab 02/20/20 05:40 Results CREATINE KINASE,CK [CHEM] Routine Lab 02/20/20 05:40 Results CULTURE BLOOD [BC] Stat Lab 02/19/20 23:18 Received CULTURE BLOOD [BC] Stat Lab 02/19/20 23:57 Received FERRITIN [CHEM] Routine Lab 02/20/20 05:40 Received LACTATE DEHYDROGENASE,LDH [CHEM] Routine Lab 02/20/20 05:40 Results PRO B-TYPE NATRIUR PEPT,BNPPRO [CHEM] Routine Lab 02/20/20 05:40 Received TROPONIN I [CHEM] Routine Lab 02/20/20 05:40 Results Acetaminophen [Tylenol] Med 02/20/20 03:01 Active 650 mg PO Q4H PRN Blood Culture x2 Reflex Set [OM.PC] Stat Oth 02/19/20 23:18 Ordered Resuscitation Status Routine Resus Stat 02/20/20 00:29 Ordered Medication Orders Acetaminophen (Tylenol) 650 mg PO Q4H PRN PRN Reason: Pain/Fever Last Admin: 02/20/20 03:36 Dose: 650 mg Documented by: LEVON Assessment/Plan Comment:: Acute hypoxemic respiratory failure COVID-19, Bilateral atypical pneumonia -COVID 19 positive on 02/18/2020 -88% on RA on presentation to ED, requiring 3L by NC to keep O2 saturation >93% -ABG on 3L NC shows pH 7.43, pCO2 40.7, pO2 63.0, HCO3 26.5, O2 saturation 91.8. -x-ray with worsening bilateral atypical pneumonia from 2 days prior -CRP 4.1, D-dimer normal PLAN -Start on remdesivir 200mg x1 then 100mg IV q24h for 5 doses -Tocilizumab 800mg IV x1, will give another dose in 24 hours if pt has increase in O2 use, chest pain, or CRP increases -hypercoagulability: Lovenox 40mg subcut q12h. No need for full anticoagulation as d-dimer normal. -Will keep supplemental oxygen to keep O2 saturation >93%. -Trend CRP Morbid Obesity -BMI 47.7 PLAN -Keep close watch on respiratory status. -Will discuss diet and exercise prior to discharge. -Checking lipid profile and Hgb A1c in AM. Sleep Apnea -Pt had sleep study done over a year ago and was recommended for CPAP machine but has not been using at home PLAN -Will help patient establish PCP on discharge -Have patient follow up with PCP about further arrangements for CPAP at home DVT prophylaxis: Lovenox 40mg IV q12h. Will check H/H and platelet count in AM. Upper GI prophylaxis: not indicated - Mortality Measure Prognosis:: Good
[2020-02-20] MEDS ORDERED: Lactated Ringers 1,000 ML IV SCH (08:45)
[2020-02-20] MEDS ORDERED: SODIUM CHLORIDE 0.9% IV ONE (09:00)
[2020-02-20] MEDS ORDERED: TOCILIZUMAB IV ONE (09:00)
--- NOTE | 2020-02-20 09:38 | CR ---
Chest: Frontal view of the chest was obtained. Comparison: Prior chest x-ray of 02/18/20. Worsening areas of increased density within the left chest from prior study. Mild increased density within the right chest believed to be fairly stable. Heart size and mediastinum are normal. Bony structures are unremarkable. Low lung volumes on both sides. Impression: 1. Worsening areas of increased density within the left chest from prior study. 2. Low lung volumes are noted. Diagnostic code #3 This report was dictated in MDT
[2020-02-20] MEDS ORDERED: Enoxaparin 40 MG/0.4 ML Syringe SUBCUT SCH ×2 (10:00→10:15)
[2020-02-20] MEDS: Dexamethasone 4 MG/ML SDV IVPUSH SCH (10:09)
[2020-02-20] MEDS: Enoxaparin 40 MG/0.4 ML Syringe SUBCUT SCH ×2 (10:20→22:58)
[2020-02-20] MEDS ORDERED: cefTRIAXone 2 GM in Sodium Chloride 0.9% 100 ML IV SCH (11:00)
[2020-02-20] MEDS ORDERED: Doxycycline 100 MG in Sodium Chloride 0.9% 100 ML IV SCH (11:00)
[2020-02-20] MEDS: guaiFENesin 100 MG/5 ML Soln 10 ML UD Cup PO PRN (23:05)
[2020-02-21] MEDS ORDERED: Vancomycin 2 GM in Sodium Chloride 0.9% 500 ML IV ONE (01:00)
[2020-02-21 07:00] LABS: HEMOGLOBIN A1C 6.1 % (4.50-6.20)
[2020-02-21] MEDS ORDERED: Tocilizumab 400 MG/20 ML SDV SUBCUT ONE (07:25)
[2020-02-21] MEDS: Enoxaparin 40 MG/0.4 ML Syringe SUBCUT SCH ×2 (09:51→21:48)
[2020-02-21] MEDS: Vancomycin 1.5 GM in Sodium Chloride 0.9% 500 ML IV SCH ×2 (09:51→16:42)
[2020-02-21] MEDS ORDERED: REMDESIVIR (EUA) 100 MG in Sodium Chloride 0.9% 100 ML IV SCH (10:00)
[2020-02-21] MEDS: Dexamethasone 4 MG/ML SDV IVPUSH SCH (10:47)
[2020-02-21] MEDS: REMDESIVIR (EUA) 100 MG in Sodium Chloride 0.9% 100 ML IV SCH (12:18)
--- NOTE | 2020-02-21 13:41 | PCM.PN ---
- General Info Date of Service: 02/21/20 Admission Dx/Problem (Free Text): Admission Diagnosis/Problem Admission Diagnosis/Problem Acute hypoxic respiratory failure, COVID-19 Pneumonia Subjective Update: The patient was seen by me at bedside. He states he has been coughing less. Overnight he did have cough attack but once he got to sleep he stayed asleep. He was able to prone position for an hour last night but it was very uncomfortable for him. His O2 saturation dropped to 90% on 3L and O2 supplementation increased to 4L to keep saturation >92%. He still has decreased appetite. Had diarrhea x1 last night. Denies nausea. Still feels very weak and tired. He has been getting cold sweats on and off. Afebrile overnight. Denies chest pain or palpitations. Chest feels less tight than yesterday. - Patient Data Vitals - Most Recent: Last Vital Signs Temp 97.9 F 02/21/20 12:25 Pulse 94 02/21/20 12:25 Resp 20 02/21/20 12:25 BP 142/54 H 02/21/20 12:25 Pulse Ox 93 L 02/21/20 12:27 Weight - Most Recent: 342 lb 14.4 oz - Exam Quality Assessment: Supplemental Oxygen (4L by NC) General: Alert, Oriented, Cooperative HEENT: Pupils Equal, Pupils Reactive, EOMI Neck: Supple Lungs: Crackles (In lower lobes bilaterally on inhalation), Other (Poor lung expansion. Patient coughs when expanding lungs). No: Rhonchi, Rub, Wheezing Cardiovascular: Regular Rate, Regular Rhythm GI/Abdominal Exam: Normal Bowel Sounds, Soft, Non-Tender, No Distention Extremities: Normal Inspection, No Pedal Edema, Normal Capillary Refill Sepsis Event Note - Evaluation Sepsis Screening Result: No Definite Risk - Problem List & Annotations (1) Acute respiratory failure with hypoxia SNOMED Code(s): 61016989, 889136220 Code(s): J96.01 - ACUTE RESPIRATORY FAILURE WITH HYPOXIA Status: Acute Current Visit: Yes (2) Bacteremia due to Gram-positive bacteria SNOMED Code(s): 354440616197 Code(s): R78.81 - BACTEREMIA Status: Acute Current Visit: Yes (3) Pneumonia due to COVID-19 virus SNOMED Code(s): 545320711 Code(s): U07.1 - COVID-19; J12.89 - OTHER VIRAL PNEUMONIA Status: Acute Current Visit: Yes (4) Morbid obesity with BMI of 45.0-49.9, adult SNOMED Code(s): 144935640, 61073747666779 Code(s): E66.01 - MORBID (SEVERE) OBESITY DUE TO EXCESS CALORIES; Z68.42 - DREW DY MASS INDEX (BMI) 45.0-49.9, ADULT Status: Acute Current Visit: Yes (5) Sleep apnea in adult SNOMED Code(s): 06704251 Code(s): G47.30 - SLEEP APNEA, UNSPECIFIED Status: Acute Current Visit: Yes (6) Pre-diabetes SNOMED Code(s): 048560067 Code(s): R73.03 - PREDIABETES Status: Acute Current Visit: Yes - Problem List Review Problem List Initiated/Reviewed/Updated: Yes - Assessment Assessment:: 02/20/2020 - COVID 19 positive on 02/18/2020 - 88% on RA on presentation to ED, requiring 3L by NC to keep O2 saturation >93% - ABG on 3L NC shows pH 7.43, pCO2 40.7, pO2 63.0, HCO3 26.5, O2 saturation 91.8. - x-ray with worsening bilateral atypical pneumonia from 2 days prior - CRP 4.1, D-dimer normal - BMI 47.7 - Pt had sleep study done over a year ago and was recommended for CPAP machine but has not been using at home PLAN - Start on remdesivir 200mg x1 then 100mg IV q24h for 5 doses - Tocilizumab 800mg IV x1 - hypercoagulability: Lovenox 40mg subcut q12h. No need for full anticoagulation as d-dimer normal. - Supplemental oxygen to keep O2 saturation >93%. - Trend CRP - Keep close watch on respiratory status. - Discuss diet and exercise. - Prone as tolerated at night - Checking lipid profile and Hgb A1c in AM. - Will help patient establish PCP on discharge - Have patient follow up with PCP about further arrangements for CPAP at home - Lovenox 40mg IV q12h. 02/21/2020 - O2 supplementation uptitrated to 4L to keep O2 sat >92% overnight - Pt remained afebrile for >24h - ABG improved, on 3L by NC shows pH 7.39, CO2 44.6, PO2 80.0, HCO3 26.3, O2 s aturation 95.3 - Coughing has decreased some today - Pt did not tolerate prone positioning due to body habitus, remained prone 1 hour - CRP 7.5 up from 4.1 - D-dimer 0.19, Ferritin 319, LDH 361 up from 307 - Blood culture growing gram positive cocci 2/2, waiting final culture results - HgbA1c is 6.1% - Pt eating 100% of meals, but feels decreased appetite - Plan Plan:: Acute hypoxemic respiratory failure COVID-19, Bilateral atypical pneumonia - Gave remdesivir loading dose, continue 100mg IV q24h for 4 more doses - Tocilizumab 800mg IV x1 again today - Dexamethasone 6mg IV q24h x 9 more doses - Lovenox 40mg subcut q12h. - Will keep supplemental oxygen to keep O2 saturation >93%. - Find comfort measure for intermittent proning - Trend CRP, ferritin, LDH Bacteremia- Gram positive cocci - Started vancomycin 1.5g IV q8h - Will watch for final culture Morbid Obesity - BMI 47.9 - Keep close watch on respiratory status. - Will discuss diet and exercise prior to discharge. Prediabetes -Hgb A1c 6.1% - Discussed diet and exercise - Changed diet to calorie controlled - Consulted dietary Sleep Apnea - Follow up with PCP about further arrangements for CPAP at home PROPHYLAXIS DVT- Lovenox 40mg IV q12h. Will check H/H and platelet count in AM. GI- not indicated CODE STATUS: FULL CODE DISPOSITION: Patient will remain admitted for acute hypoxic respiratory failure, bacteremia, COVID-19, we will keep close respiratory monitoring. Patient requires more O2. Receiving another dose of tocilizumab, continue steroids. Expected stay between 3-4 days.
[2020-02-22] MEDS: Vancomycin 1.5 GM in Sodium Chloride 0.9% 500 ML IV SCH ×2 (00:20→12:26)
--- NOTE | 2020-02-22 09:34 | PCM.PN ---
- General Info Date of Service: 02/22/20 Admission Dx/Problem (Free Text): Admission Diagnosis/Problem Admission Diagnosis/Problem Acute hypoxic respiratory failure, COVID-19 Pneumonia Subjective Update: The patient was seen by me at bedside. He continues to have dry cough, worsened by trying to take a deep breath. He states he was weaned to 1L by MN but last night he had increased coughing and oxygen saturation dropped <90% and patient was placed back on 3L by MN. He was placed on CPAP overnight. He did not like using CPAP and felt like his mouth was dry but he did not feel short of breath. He does continue to have diarrhea but it has lessened. 3x diarrhea yesterday. No nausea. No chest pain or palpitations. Still feels very weak and tired. He has been getting cold sweats on and off. His parents had questions about blood cultures and questions were answered to entirety. - Patient Data Vitals - Most Recent: Last Vital Signs Temp 97.3 F 02/22/20 00:19 Pulse 84 02/22/20 00:19 Resp 20 02/22/20 00:19 BP 132/63 02/22/20 00:19 Pulse Ox 91 L 02/22/20 08:31 Weight - Most Recent: 346 lb - Exam Quality Assessment: Supplemental Oxygen (3L ) General: Alert, Oriented, Cooperative, Other (Sitting up at bedside) HEENT: Pupils Equal, Pupils Reactive, EOMI Lungs: Decreased Breath Sounds, Other (With deep inhalation, patient has deep, dry coughing). No: Crackles, Rales Cardiovascular: Regular Rate, Regular Rhythm, No Murmurs GI/Abdominal Exam: Normal Bowel Sounds, Soft, Non-Tender Extremities: Normal Inspection, Non-Tender, No Pedal Edema, Normal Capillary Refill Peripheral Pulses: 2+: Posterior Tibial (L), Posterior Tibial (R) Skin: Warm, Dry, Intact Psy/Mental Status: Alert, Normal Affect, Normal Mood Sepsis Event Note - Evaluation Sepsis Screening Result: No Definite Risk - Problem List & Annotations (1) Acute respiratory failure with hypoxia SNOMED Code(s): 97966285, 040888322 Code(s): J96.01 - ACUTE RESPIRATORY FAILURE WITH HYPOXIA Status: Acute Current Visit: Yes (2) Pneumonia due to COVID-19 virus SNOMED Code(s): 682458834 Code(s): U07.1 - COVID-19; J12.89 - OTHER VIRAL PNEUMONIA Status: Acute Current Visit: Yes (3) Morbid obesity with BMI of 45.0-49.9, adult SNOMED Code(s): 768188487, 20585258375883 Code(s): E66.01 - MORBID (SEVERE) OBESITY DUE TO EXCESS CALORIES; Z68.42 - BODY MASS INDEX (BMI) 45.0-49.9, ADULT Status: Acute Current Visit: Yes (4) Sleep apnea in adult SNOMED Code(s): 46586364 Code(s): G47.30 - SLEEP APNEA, UNSPECIFIED Status: Acute Current Visit: Yes (5) Pre-diabetes SNOMED Code(s): 163689024 Code(s): R73.03 - PREDIABETES Status: Acute Current Visit: Yes - Problem List Review Problem List Initiated/Reviewed/Updated: Yes - Assessment Assessment:: 02/20/2020 - COVID 19 positive on 02/18/2020 - 88% on RA on presentation to ED, requiring 3L by NC to keep O2 saturation >93% - ABG on 3L NC shows pH 7.43, pCO2 40.7, pO2 63.0, HCO3 26.5, O2 saturation 91.8. - x-ray with worsening bilateral atypical pneumonia from 2 days prior - CRP 4.1, D-dimer normal - BMI 47.7 - Pt had sleep study done over a year ago and was recommended for CPAP machine but has not been using at home PLAN - Start on remdesivir 200mg x1 then 100mg IV q24h for 5 doses - Tocilizumab 800mg IV x1 - hypercoagulability: Lovenox 40mg subcut q12h. No need for full anticoagulation as d-dimer normal. - Supplemental oxygen to keep O2 saturation >93%. - Trend CRP - Keep close watch on respiratory status. - Discuss diet and exercise. - Prone as tolerated at night - Checking lipid profile and Hgb A1c in AM. - Will help patient establish PCP on discharge - Have patient follow up with PCP about further arrangements for CPAP at home - Lovenox 40mg IV q12h. 02/21/2020 - O2 supplementation uptitrated to 4L to keep O2 sat >92% overnight - Pt remained afebrile for >24h - ABG improved, on 3L by NC shows pH 7.39, CO2 44.6, PO2 80.0, HCO3 26.3, O2 sat uration 95.3 - Coughing has decreased some today - Pt did not tolerate prone positioning due to body habitus, remained prone 1 hour - CRP 7.5 up from 4.1 - D-dimer 0.19, Ferritin 319, LDH 361 up from 307 - Blood culture growing gram positive cocci 1/2, waiting final culture results - HgbA1c is 6.1% - Pt eating 100% of meals, but feels decreased appetite PLAN - Continue 100mg IV q24h for 4 more doses - Tocilizumab 800mg IV x1 - second dose - Dexamethasone 6mg IV q24h day 2 - Lovenox 40mg subcut q12h. - Will keep supplemental oxygen to keep O2 saturation >93%. - Find comfort measure for intermittent proning - Trend CRP, ferritin, LDH - Started vancomycin 1.5g IV q8h - Will watch for final culture - Diet to calorie restricted- 2500 daily - Discussed diet and exercise - Consulted dietary - Started CPAP at night 02/22/2020 - O2 supplementation weaned to 1L yesterday but at night was uptitrated to 3L. - Remains on 3L by MN today to keep O2 saturation 92-96% - Remains afebrile, pulse 75, RR and BP normal - WBC 5.08 - H/H stable, platelets 181 - Blood culture grew staph warneri- contamination - LDH 288 down from 361, CRP 3.5 down from 7.5 - Pt eating 100% of meals, tolerates restricted calorie diet - Plan Plan:: Acute hypoxemic respiratory failure COVID-19, Bilateral atypical pneumonia - Continue 100mg IV q24h on day 3 - Dexamethasone 6mg IV q24h on day 3 - Changing from dexamethasone to prednisone 40mg oral in AM - Lovenox 40mg subcut q12h - Weaning O2 today to keep O2 saturation 92-96% during day, CPAP at night - Find comfort measure for intermittent proning - Trending labs Bacteremia- staph warneri, contamination - Stopped vancomycin Morbid Obesity - BMI 48.3 Prediabetes -Hgb A1c 6.1% Sleep Apnea - Keep close watch on respiratory status. - Discussed diet and exercise. - 2,500 calorie diet - CPAP at night in hospital - Follow up with PCP about further arrangements for CPAP at home PROPHYLAXIS DVT- Lovenox 40mg IV q12h. Will check H/H and platelet count in AM. GI- not indicated CODE STATUS: FULL CODE DISPOSITION: Patient will remain admitted for acute hypoxic respiratory failure, COVID-19, we will keep close respiratory monitoring. Wean daytime O2. Continue steroids. Expected stay between 2-3 days.
[2020-02-22] MEDS: Enoxaparin 40 MG/0.4 ML Syringe SUBCUT SCH ×2 (09:49→21:49)
[2020-02-22] MEDS: Dexamethasone 4 MG/ML SDV IVPUSH SCH (11:03)
[2020-02-22] MEDS: REMDESIVIR (EUA) 100 MG in Sodium Chloride 0.9% 100 ML IV SCH (11:48)
[2020-02-22] MEDS: guaiFENesin 100 MG/5 ML Soln 10 ML UD Cup PO PRN (17:29)
[2020-02-23] MEDS: predniSONE 20 MG Tab PO SCH (09:15)
[2020-02-23] MEDS: Enoxaparin 40 MG/0.4 ML Syringe SUBCUT SCH ×2 (09:15→22:13)
[2020-02-23] MEDS: REMDESIVIR (EUA) 100 MG in Sodium Chloride 0.9% 100 ML IV SCH (11:39)
[2020-02-23] MEDS ORDERED: Potassium Chloride 20 MEQ Tab.ER PO ONE (12:16)
--- NOTE | 2020-02-23 15:24 | PCM.PN ---
- General Info Date of Service: 02/23/20 Admission Dx/Problem (Free Text): Admission Diagnosis/Problem Admission Diagnosis/Problem Acute hypoxic respiratory failure, COVID-19 Pneumonia Subjective Update: The patient was seen by me at bedside. This morning he finally feels some better. He used CPAP overnight. His oxygen supplementation decreased to 1.5L at rest during day and he does not feel short of breath. Continues to cough when trying to take deep breath. He is eating 100% of meals and feels like he is getting enough food. Soft/diarrhea BM this AM, no nausea, no vomiting, no abdominal pain. Denies chest pain. He has been trying to get up and ambulate some in the room. He does continue to feel anxious. - Patient Data Vitals - Most Recent: Last Vital Signs Temp 97.9 F 02/23/20 03:48 Pulse 83 02/23/20 03:48 Resp 20 02/23/20 03:48 BP 109/32 L 02/23/20 03:48 Pulse Ox 93 L 02/23/20 13:49 Weight - Most Recent: 345 lb 12.8 oz Med Orders - Current: Current Medications Acetaminophen (Tylenol) 650 mg PO Q4H PRN PRN Reason: Pain/Fever Last Admin: 02/20/20 12:46 Dose: 650 mg Documented by: Enoxaparin Sodium (Lovenox) 40 mg SUBCUT Q12H [facility] Last Admin: 02/23/20 09:15 Dose: 40 mg Documented by: Guaifenesin (Robitussin) 200 mg PO Q4H PRN PRN Reason: Cough Last Admin: 02/22/20 17:29 Dose: 200 mg Documented by: REMDESIVIR (EUA) 100 mg/ (Sodium Chloride) 100 mls @ 100 mls/hr IV Q24H [facility] Stop: 02/24/20 15:00 Last Admin: 02/23/20 11:39 Dose: 100 mls/hr Documented by: Prednisone (Prednisone) 40 mg PO DAILY [facility] Last Admin: 02/23/20 09:15 Dose: 40 mg Documented by: Discontinued Medications Dexamethasone (Dexamethasone) 6 mg IVPUSH Q24H [facility] Last Admin: 02/22/20 11:03 Dose: 6 mg Documented by: Enoxaparin Sodium (Lovenox) 40 mg SUBCUT Q12H [facility] Last Admin: 02/22/20 21:49 Dose: 40 mg Documented by: Tocilizumab 400 mg/Tocilizumab 400 mg/ Sodium Chloride 100 mls @ 100 mls/hr IV ONETIME ONE Stop: 02/20/20 09:59 Last Admin: 02/20/20 10:04 Dose: 100 mls/hr Documented by: REMDESIVIR (EUA) 200 mg/ (Sodium Chloride) 250 mls @ 250 mls/hr IV ONETIME ONE Stop: 02/20/20 10:59 Last Admin: 02/20/20 11:26 Dose: 250 mls/hr Documented by: REMDESIVIR (EUA) 100 mg/ (Sodium Chloride) 100 mls @ 100 mls/hr IV Q24H [facility] Lactated Ringer's (Ringers, Lactated) 1,000 mls @ 40 mls/hr IV ASDIRECTED [facility] Last Admin: 02/20/20 12:31 Dose: 40 mls/hr Documented by: Vancomycin HCl 2 gm/ Sodium (Chloride) 500 mls @ 250 mls/hr IV ONETIME ONE Stop: 02/21/20 02:59 Last Admin: 02/21/20 02:22 Dose: 250 mls/hr Documented by: Vancomycin HCl 1.5 gm/ Sodium (Chloride) 500 mls @ 250 mls/hr IV Q8H [facility] Last Admin: 02/22/20 12:26 Dose: Not Given Documented by: Tocilizumab 800 mg/ Sodium (Chloride) 100 mls @ 100 mls/hr IV ONETIME ONE Stop: 02/21/20 11:59 Tocilizumab 800 mg/ Sodium (Chloride) 100 mls @ 100 mls/hr IV ONETIME ONE Stop: 02/21/20 13:59 Last Admin: 02/21/20 13:40 Dose: 100 mls/hr Documented by: Potassium Chloride (Klor-Con M20) 20 meq PO ONETIME ONE Stop: 02/23/20 12:17 Last Admin: 02/23/20 14:12 Dose: 20 meq Documented by: Vancomycin HCl (Pharmacy To Dose - Vancomycin) 1 dose .XX ASDIRECTED PRN PRN Reason: RX TO DOSE VANCO - Exam Physical Findings Comments:: General: Alert, Oriented, Cooperative, Other (Sitting up in chair in room) HEENT: Pupils Equal, Pupils Reactive, EOMI Lungs: Decreased Breath Sounds, Other (With deep inhalation, patient has deep, dry coughing). No: Crackles, Rales Cardiovascular: Regular Rate, Regular Rhythm, No Murmurs GI/Abdominal Exam: Normal Bowel Sounds, Soft, Non-Tender Extremities: Normal Inspection, Non-Tender, No Pedal Edema, Normal Capillary Refill Peripheral Pulses: 2+: Posterior Tibial (L), Posterior Tibial (R) Skin: Warm, Dry, Intact Psy/Mental Status: Alert, Normal Affect, Normal Mood Sepsis Event Note - Evaluation Sepsis Screening Result: No Definite Risk - Problem List & Annotations (1) Acute respiratory failure with hypoxia SNOMED Code(s): 84486912, 513504409 Code(s): J96.01 - ACUTE RESPIRATORY FAILURE WITH HYPOXIA Status: Acute Current Visit: Yes (2) Pneumonia due to COVID-19 virus SNOMED Code(s): 804369594 Code(s): U07.1 - COVID-19; J12.89 - OTHER VIRAL PNEUMONIA Status: Acute Current Visit: Yes (3) Morbid obesity with BMI of 45.0-49.9, adult SNOMED Code(s): 964626641, 76696909372574 Code(s): E66.01 - MORBID (SEVERE) OBESITY DUE TO EXCESS CALORIES; Z68.42 - BODY MASS INDEX (BMI) 45.0-49.9, ADULT Status: Acute Current Visit: Yes (4) Sleep apnea in adult SNOMED Code(s): 90096388 Code(s): G47.30 - SLEEP APNEA, UNSPECIFIED Status: Acute Current Visit: Yes (5) Pre-diabetes SNOMED Code(s): 640886357 Code(s): R73.03 - PREDIABETES Status: Acute Current Visit: Yes - Problem List Review Problem List Initiated/Reviewed/Updated: Yes - Assessment Assessment:: 02/20/2020 - COVID 19 positive on 02/18/2020 - 88% on RA on presentation to ED, requiring 3L by NC to keep O2 saturation >93% - ABG on 3L NC shows pH 7.43, pCO2 40.7, pO2 63.0, HCO3 26.5, O2 saturation 91.8. - x-ray with worsening bilateral atypical pneumonia from 2 days prior - CRP 4.1, D-dimer normal - BMI 47.7 - Pt had sleep study done over a year ago and was recommended for CPAP machine but has not been using at home PLAN - Start on remdesivir 200mg x1 then 100mg IV q24h for 5 doses - Tocilizumab 800mg IV x1 - hypercoagulability: Lovenox 40mg subcut q12h. No need for full anticoagulation as d-dimer normal. - Supplemental oxygen to keep O2 saturation >93%. - Trend CRP - Keep close watch on respiratory status. - Discuss diet and exercise. - Prone as tolerated at night - Checking lipid profile and Hgb A1c in AM. - Will help patient establish PCP on discharge - Have patient follow up with PCP about further arrangements for CPAP at home - Lovenox 40mg IV q12h. 02/21/2020 - O2 supplementation uptitrated to 4L to keep O2 sat >92% overnight - Pt remained afebrile for >24h - ABG improved, on 3L by NC shows pH 7.39, CO2 44.6, PO2 80.0, HCO3 26.3, O2 saturation 95.3 - Coughing has decreased some today - Pt did not tolerate prone positioning due to body habitus, remained prone 1 hour - CRP 7.5 up from 4.1 - D-dimer 0.19, Ferritin 319, LDH 361 up from 307 - Blood culture growing gram positive cocci 1/2, waiting final culture results - HgbA1c is 6.1% - Pt eating 100% of meals, but feels decreased appetite PLAN - Continue 100mg IV q24h for 4 more doses - Tocilizumab 800mg IV x1 - second dose - Dexamethasone 6mg IV q24h day 2 - Lovenox 40mg subcut q12h. - Will keep supplemental oxygen to keep O2 saturation >93%. - Find comfort measure for intermittent proning - Trend CRP, ferritin, LDH - Started vancomycin 1.5g IV q8h - Will watch for final culture - Diet to calorie restricted- 2500 daily - Discussed diet and exercise - Consulted dietary - Started CPAP at night 02/22/2020 - O2 supplementation weaned to 1L yesterday but at night was uptitrated to 3L. - Remains on 3L by NC today to keep O2 saturation 92-96% - Remains afebrile, pulse 75, RR and BP normal - WBC 5.08 - H/H stable, platelets 181 - Blood culture grew staph warneri- contamination - LDH 288 down from 361, CRP 3.5 down from 7.5 - Pt eating 100% of meals, tolerates restricted calorie diet PLAN - Continue remdesivir 100mg IV q24h on day 3 - Dexamethasone 6mg IV q24h on day 3 - Changing from dexamethasone to prednisone 40mg oral in AM - Lovenox 40mg subcut q12h - Weaning O2 today to keep O2 saturation 92-96% during day, CPAP at night - Find comfort measure for intermittent proning - Trending labs - Stopped vancomycin - Keep close watch on respiratory status. - Discussed diet and exercise. - 2,500 calorie diet - CPAP at night in hospital - Follow up with PCP about further arrangements for CPAP at home 02/23/2020 Weaned to 1.5L by DC and patient tolerating w/ O2 sat 92-96% Tolerated CPAP overnight Tolerating diet BP stable, HR 83, remains afebrile WBC 5.48, hgb 14.2, hct 43.2 D-dimer remains <0.19 Electrolytes normal Repeat troponin <0.017 - Plan Plan:: Acute hypoxemic respiratory failure COVID-19, Bilateral atypical pneumonia - Continue remdesivir 100mg IV q24h on day 4 - Changed from dexamethasone to prednisone 40mg oral today. Day 4 of steroids - Lovenox 40mg subcut q12h - Weaning O2 today to keep O2 saturation 92-96% during day, CPAP at night - Trending labs Bacteremia- staph warneri, contamination - resolved - Stopped vancomycin Morbid Obesity - BMI 48.3 Prediabetes -Hgb A1c 6.1% Sleep Apnea - Keep close watch on respiratory status. - Discussed diet and exercise. - 2,500 calorie diet - CPAP at night in hospital - Follow up with PCP about further arrangements for CPAP at home PROPHYLAXIS DVT- Lovenox 40mg IV q12h. Will check H/H and platelet count in AM. GI- not indicated CODE STATUS: FULL CODE DISPOSITION: Patient will remain admitted for acute hypoxic respiratory failure, COVID-19, we will keep close respiratory monitoring. Wean daytime O2. Continue steroids. Expected stay between 1-2 days.
[2020-02-24] MEDS ORDERED: Potassium Chloride 20 MEQ Tab.ER PO ONE (08:00)
[2020-02-24] MEDS: Enoxaparin 40 MG/0.4 ML Syringe SUBCUT SCH ×2 (08:54→21:04)
[2020-02-24] MEDS: predniSONE 20 MG Tab PO SCH (08:55)
--- NOTE | 2020-02-24 09:13 | PCM.PN ---
- General Info Date of Service: 02/24/20 Admission Dx/Problem (Free Text): Admission Diagnosis/Problem Admission Diagnosis/Problem Acute hypoxic respiratory failure, COVID-19 Pneumonia Subjective Update: The patient was seen by me at bedside. Today he is coughing more than yesterday. Overnight the CPAP beeped so he did not get great sleep. He has been ambulating in the room and is using incentive spirometer, reaching the 1500 cherelle. He does continue to have coughing attacks after deep inhalation. He does feel short of breath with ambulation. He denies nausea, no vomiting. Diarrhea 1x a day now. He is eating well. No chest pain. - Patient Data Vitals - Most Recent: Last Vital Signs Temp 98.1 F 02/23/20 11:39 Pulse 77 02/24/20 08:55 Resp 22 H 02/24/20 08:55 BP 112/65 02/24/20 08:55 Pulse Ox 95 02/24/20 05:55 Weight - Most Recent: 343 lb 12.8 oz Vel Results Last 24 Hours: Microbiology 02/22/20 00:14 Aerobic Blood Culture - Preliminary Blood - Venous - Lab Draw NO GROWTH AFTER 2 DAYS Anaerobic Blood Culture - Preliminary NO GROWTH AFTER 2 DAYS 02/22/20 00:08 Aerobic Blood Culture - Preliminary Blood - Venous NO GROWTH AFTER 2 DAYS Anaerobic Blood Culture - Preliminary NO GROWTH AFTER 2 DAYS 02/20/20 00:07 Aerobic Blood Culture - Final Blood - Venous - Lab Draw Staphylococcus Warneri Anaerobic Blood Culture - Preliminary NO GROWTH AFTER 4 DAYS 02/19/20 23:57 Aerobic Blood Culture - Preliminary Blood - Venous NO GROWTH AFTER 4 DAYS Anaerobic Blood Culture - Preliminary NO GROWTH AFTER 4 DAYS Med Orders - Current: Current Medications Acetaminophen (Tylenol) 650 mg PO Q4H PRN PRN Reason: Pain/Fever Last Admin: 02/20/20 12:46 Dose: 650 mg Documented by: Enoxaparin Sodium (Lovenox) 40 mg SUBCUT Q12H [facility] Last Admin: 02/24/20 08:54 Dose: 40 mg Documented by: Guaifenesin (Robitussin) 200 mg PO Q4H PRN PRN Reason: Cough Last Admin: 02/22/20 17:29 Dose: 200 mg Documented by: REMDESIVIR (EUA) 100 mg/ (Sodium Chloride) 100 mls @ 100 mls/hr IV Q24H [facility] Stop: 02/24/20 15:00 Last Admin: 02/23/20 11:39 Dose: 100 mls/hr Documented by: Prednisone (Prednisone) 40 mg PO DAILY [facility] Last Admin: 02/24/20 08:55 Dose: 40 mg Documented by: - Exam General: Alert, Oriented, Cooperative, Moderate Distress (Coughing) HEENT: Pupils Equal, Pupils Reactive, EOMI Cardiovascular: Regular Rate, Regular Rhythm. No: Murmurs, Gallops, Rubs GI/Abdominal Exam: Normal Bowel Sounds, Soft, Non-Tender, No Distention Extremities: Normal Inspection, No Pedal Edema, Normal Capillary Refill Skin: Warm, Dry, Intact Psy/Mental Status: Alert, Normal Affect, Normal Mood Sepsis Event Note - Evaluation Sepsis Screening Result: No Definite Risk - Focused Exam Vital Signs: Vital Signs Pulse Resp BP Pulse Ox 02/24/20 08:55 77 22 H 112/65 02/24/20 05:55 95 02/24/20 05:25 75 18 102/72 02/24/20 01:10 94 L 02/24/20 00:39 77 20 121/58 L 02/23/20 22:09 78 16 108/71 - Problem List & Annotations (1) Acute respiratory failure with hypoxia SNOMED Code(s): 96337574, 061932793 Code(s): J96.01 - ACUTE RESPIRATORY FAILURE WITH HYPOXIA Status: Acute Current Visit: Yes (2) Pneumonia due to COVID-19 virus SNOMED Code(s): 161229086 Code(s): U07.1 - COVID-19; J12.89 - OTHER VIRAL PNEUMONIA Status: Acute Current Visit: Yes (3) Morbid obesity with BMI of 45.0-49.9, adult SNOMED Code(s): 801373905, 23664835570620 Code(s): E66.01 - MORBID (SEVERE) OBESITY DUE TO EXCESS CALORIES; Z68.42 - BODY MASS INDEX (BMI) 45.0-49.9, ADULT Status: Acute Current Visit: Yes (4) Sleep apnea in adult SNOMED Code(s): 95331457 Code(s): G47.30 - SLEEP APNEA, UNSPECIFIED Status: Acute Current Visit: Y es (5) Pre-diabetes SNOMED Code(s): 824723598 Code(s): R73.03 - PREDIABETES Status: Acute Current Visit: Yes (6) Hypokalemia SNOMED Code(s): 01924786 Code(s): E87.6 - HYPOKALEMIA Status: Acute Current Visit: Yes - Problem List Review Problem List Initiated/Reviewed/Updated: Yes - Assessment Assessment:: 02/20/2020 - COVID 19 positive on 02/18/2020 - 88% on RA on presentation to ED, requiring 3L by NC to keep O2 saturation >93% - ABG on 3L NC shows pH 7.43, pCO2 40.7, pO2 63.0, HCO3 26.5, O2 saturation 91.8. - x-ray with worsening bilateral atypical pneumonia from 2 days prior - CRP 4.1, D-dimer normal - BMI 47.7 - Pt had sleep study done over a year ago and was recommended for CPAP machine but has not been using at home PLAN - Start on remdesivir 200mg x1 then 100mg IV q24h for 5 doses - Tocilizumab 800mg IV x1 - hypercoagulability: Lovenox 40mg subcut q12h. No need for full anticoagulation as d-dimer normal. - Supplemental oxygen to keep O2 saturation >93%. - Trend CRP - Keep close watch on respiratory status. - Discuss diet and exercise. - Prone as tolerated at night - Checking lipid profile and Hgb A1c in AM. - Will help patient establish PCP on discharge - Have patient follow up with PCP about further arrangements for CPAP at home - Lovenox 40mg IV q12h. 02/21/2020 - O2 supplementation uptitrated to 4L to keep O2 sat >92% overnight - Pt remained afebrile for >24h - ABG improved, on 3L by NC shows pH 7.39, CO2 44.6, PO2 80.0, HCO3 26.3, O2 saturation 95.3 - Coughing has decreased some today - Pt did not tolerate prone positioning due to body habitus, remained prone 1 hour - CRP 7.5 up from 4.1 - D-dimer 0.19, Ferritin 319, LDH 361 up from 307 - Blood culture growing gram positive cocci 1/2, waiting final culture results - HgbA1c is 6.1% - Pt eating 100% of meals, but feels decreased appetite PLAN - Continue 100mg IV q24h for 4 more doses - Tocilizumab 800mg IV x1 - second dose - Dexamethasone 6mg IV q24h day 2 - Lovenox 40mg subcut q12h. - Will keep supplemental oxygen to keep O2 saturation >93%. - Find comfort measure for intermittent proning - Trend CRP, ferritin, LDH - Started vancomycin 1.5g IV q8h - Will watch for final culture - Diet to calorie restricted- 2500 daily - Discussed diet and exercise - Consulted dietary - Started CPAP at night 02/22/2020 - O2 supplementation weaned to 1L yesterday but at night was uptitrated to 3L. - Remains on 3L by [place] today to keep O2 saturation 92-96% - Remains afebrile, pulse 75, RR and BP normal - WBC 5.08 - H/H stable, platelets 181 - Blood culture grew staph warneri- contamination - LDH 288 down from 361, CRP 3.5 down from 7.5 - Pt eating 100% of meals, tolerates restricted calorie diet PLAN - Continue remdesivir 100mg IV q24h on day 3 - Dexamethasone 6mg IV q24h on day 3 - Changing from dexamethasone to prednisone 40mg oral in AM - Lovenox 40mg subcut q12h - Weaning O2 today to keep O2 saturation 92-96% during day, CPAP at night - Find comfort measure for intermittent proning - Trending labs - Stopped vancomycin - Keep close watch on respiratory status. - Discussed diet and exercise. - 2,500 calorie diet - CPAP at night in hospital - Follow up with PCP about further arrangements for CPAP at home 02/23/2020 Weaned to 1.5L by [place] and patient tolerating w/ O2 sat 92-96% Tolerated CPAP overnight Tolerating diet BP stable, HR 83, remains afebrile WBC 5.48, hgb 14.2, hct 43.2 D-dimer remains <0.19 Electrolytes normal Repeat troponin <0.017 - Continue remdesivir 100mg IV q24h on day 4 - Changed from dexamethasone to prednisone 40mg oral today. Day 4 of steroids - Lovenox 40mg subcut q12h - Weaning O2 today to keep O2 saturation 92-96% during day, CPAP at night - Trending labs - Keep close watch on respiratory status. - Discussed diet and exercise. - 2,500 calorie diet - CPAP at night in hospital - Follow up with PCP about further arrangements for CPAP at home 02/24/2020 O2 weaned to 1 L. Tried to go to 0.5L and O2 saturation dropped to 89% at rest. WBC 7.11, pt afebrile H/H stable Potassium 3.3 Glucose 94 LDH 306 up from 289, Ferritin normal, D-dimer normal CRP 1.0 down from 3.4 - Plan Plan:: Acute hypoxemic respiratory failure COVID-19, Bilateral atypical pneumonia - Continue remdesivir 100mg IV q24h last dose this afternoon - Changed from dexamethasone to prednisone 40mg oral today. Day 5 of steroids - Lovenox 40mg subcut q12h - Weaning O2 today to keep O2 saturation 92-96% during day, CPAP at night - Repeat CXR today to check for pleural effusions, parapneumonic effusions Hypokalemia - KCl 40meq po x1 - Recheck potassium level in AM Morbid Obesity - BMI 48.3 Prediabetes -Hgb A1c 6.1% Sleep Apnea - Keep close watch on respiratory status. - Discussed diet and exercise. - 2,500 calorie diet - CPAP at night in hospital - Follow up with PCP about further arrangements for CPAP at home Bacteremia- erica ricketts, contamination - resolved PROPHYLAXIS DVT- Lovenox 40mg IV q12h. Will check H/H and platelet count in AM. GI- not indicated CODE STATUS: FULL CODE DISPOSITION: Patient will remain admitted for acute hypoxic respiratory failure, COVID-19, we will keep close respiratory monitoring. Wean daytime O2. Repeat chest xray today. 1 more dose of remdesivir. Continue steroids. Expected discharge is tomorrow.
--- NOTE | 2020-02-24 10:13 | CR ---
Chest: Portable view of the chest was obtained. Comparison: Prior chest x-ray of 02/19/20 and 02/18/20. Nodular density is noted within the left upper chest presumably due to resolving pneumonia. Continued follow-up is recommended to make sure this does not represent other etiology. Central lung markings are mildly increased on both sides. Heart size and mediastinum are within normal limits. Bony structures are unremarkable. Impression: 1. Findings as noted above. Findings are slightly improved from previous study. No worsening is seen. 2. Nodular density within left upper chest believed to represent resolving pneumonia, however continued follow-up is recommended to make sure this does not represent other etiology. 3. No additional abnormality is appreciated. Diagnostic code #3 This report was dictated in MDT
[2020-02-24] MEDS: REMDESIVIR (EUA) 100 MG in Sodium Chloride 0.9% 100 ML IV SCH (12:48)
[2020-02-25] MEDS: guaiFENesin 100 MG/5 ML Soln 10 ML UD Cup PO PRN ×2 (08:33→20:04)
[2020-02-25] MEDS: Enoxaparin 40 MG/0.4 ML Syringe SUBCUT SCH ×2 (08:33→20:04)
[2020-02-25] MEDS: predniSONE 20 MG Tab PO SCH (08:33)
--- NOTE | 2020-02-25 13:48 | PCM.PN ---
- General Info Date of Service: 02/25/20 Admission Dx/Problem (Free Text): Admission Diagnosis/Problem Admission Diagnosis/Problem Acute hypoxic respiratory failure, COVID-19 Pneumonia Subjective Update: Patient continues to be short of breath and coughing severely. Pulse ox is in the low 90s on room air. Functional Status: Reports: Pain Controlled - Review of Systems General: Reports: No Symptoms HEENT: Reports: No Symptoms Pulmonary: Reports: Shortness of Breath, Cough Cardiovascular: Reports: No Symptoms Musculoskeletal: Reports: No Symptoms - Patient Data Vitals - Most Recent: Last Vital Signs Temp 97.9 F 02/25/20 11:53 Pulse 83 02/25/20 12:00 Resp 20 02/25/20 11:53 BP 133/70 02/25/20 11:53 Pulse Ox 93 L 02/25/20 12:00 Weight - Most Recent: 155.491 kg I&O - Last 24 Hours: Intake & Output 02/24/20 02/25/20 02/25/20 22:59 06:59 14:59 Intake Total 1900 1200 Output Total 2450 1350 Balance -550 -150 Imaging Impressions - Last 24 Hours: Chest x-ray showed slight improvement. Nodular density within the left upper chest believed to represent resolving pneumonia, however continued follow-up is recommended to make sure this does not represent other etiology. Lab Results Last 24 Hours: Laboratory Results - last 24 hr 02/25/20 02/25/20 Range/Units 06:05 06:05 WBC 9.63 H (4.23-9.07) K/mm3 RBC 5.15 (4.63-6.08) M/mm3 Hgb 14.5 (13.7-17.5) gm/dl Hct 44.1 (40.1-51.0) % MCV 85.6 (79.0-92.2) fl MCH 28.2 (25.7-32.2) pg MCHC 32.9 (32.2-35.5) g/dl RDW Std Deviation 40.9 (35.1-43.9) fL Plt Count 231 (163-337) K/mm3 MPV 11.4 (9.4-12.3) fl Neut % (Auto) 51.1 (34.0-67.9) % Lymph % (Auto) 34.4 (21.8-53.1) % [place] % (Auto) 11.5 (5.3-12.2) % Eos % (Auto) 1.2 (0.8-7.0) Baso % (Auto) 0.8 (0.1-1.2) % Neut # (Auto) 4.91 (1.78-5.38) K/mm3 Lymph # (Auto) 3.31 (1.32-3.57) K/mm3 [place] # (Auto) 1.11 H (0.30-0.82) K/mm3 Eos # (Auto) 0.12 (0.04-0.54) K/mm3 Baso # (Auto) 0.08 (0.01-0.08) K/mm3 Manual Slide Review Normal smear Sodium 140 (136-145) mEq/L Potassium 3.5 (3.5-5.1) mEq/L Chloride 103 (98-107) mEq/L Carbon Dioxide 31 (21-32) mEq/L Anion Gap 9.5 (5-15) BUN 13 (7-18) mg/dL Creatinine 1.1 (0.7-1.3) mg/dL Est Cr Clr Drug Dosing 110.29 mL/min Estimated GFR (MDRD) > 60 (>60) mL/min BUN/Creatinine Ratio 11.8 L (14-18) Glucose 91 (74-106) mg/dL Calcium 8.8 (8.5-10.1) mg/dL Phosphorus 4.6 (2.6-4.7) mg/dL Magnesium 2.1 (1.8-2.4) mg/dl Total Bilirubin 0.4 (0.2-1.0) mg/dL AST 91 H (15-37) U/L ALT 178 H (16-63) U/L Alkaline Phosphatase 34 L (46-116) U/L Total Protein 6.1 L (6.4-8.2) g/dl Albumin 3.1 L (3.4-5.0) g/dl Globulin 3.0 gm/dL Albumin/Globulin Ratio 1.0 (1-2) Vel Results Last 24 Hours: Microbiology 02/22/20 00:14 Aerobic Blood Culture - Preliminary Blood - Venous - Lab Draw NO GROWTH AFTER 3 DAYS Anaerobic Blood Culture - Preliminary NO GROWTH AFTER 3 DAYS 02/22/20 00:08 Aerobic Blood Culture - Preliminary Blood - Venous NO GROWTH AFTER 3 DAYS Anaerobic Blood Culture - Preliminary NO GROWTH AFTER 3 DAYS 02/20/20 00:07 Aerobic Blood Culture - Final Blood - Venous - Lab Draw Staphylococcus Warneri Anaerobic Blood Culture - Preliminary NO GROWTH AFTER 5 DAYS 02/19/20 23:57 Aerobic Blood Culture - Preliminary Blood - Venous NO GROWTH AFTER 5 DAYS Anaerobic Blood Culture - Preliminary NO GROWTH AFTER 5 DAYS Med Orders - Current: Current Medications Acetaminophen (Tylenol) 650 mg PO Q4H PRN PRN Reason: Pain/Fever Last Admin: 02/20/20 12:46 Dose: 650 mg Documented by: Enoxaparin Sodium (Lovenox) 40 mg SUBCUT Q12H [facility] Last Admin: 02/25/20 08:33 Dose: 40 mg Documented by: Guaifenesin (Robitussin) 200 mg PO Q4H PRN PRN Reason: Cough Last Admin: 02/25/20 08:33 Dose: 200 mg Documented by: Prednisone (Prednisone) 40 mg PO DAILY [facility] Last Admin: 02/25/20 08:33 Dose: 40 mg Documented by: Discontinued Medications Dexamethasone (Dexamethasone) 6 mg IVPUSH Q24H [facility] Last Admin: 02/22/20 11:03 Dose: 6 mg Documented by: Enoxaparin Sodium (Lovenox) 40 mg SUBCUT Q12H [facility] Last Admin: 02/22/20 21:49 Dose: 40 mg Documented by: Tocilizumab 400 mg/Tocilizumab 400 mg/ Sodium Chloride 100 mls @ 100 mls/hr IV ONETIME ONE Stop: 02/20/20 09:59 Last Admin: 02/20/20 10:04 Dose: 100 mls/hr Documented by: REMDESIVIR (EUA) 200 mg/ (Sodium Chloride) 250 mls @ 250 mls/hr IV ONETIME ONE Stop: 02/20/20 10:59 Last Admin: 02/20/20 11:26 Dose: 250 mls/hr Documented by: REMDESIVIR (EUA) 100 mg/ (Sodium Chloride) 100 mls @ 100 mls/hr IV Q24H [facility] Lactated Ringer's (Ringers, Lactated) 1,000 mls @ 40 mls/hr IV ASDIRECTED [facility] Last Admin: 02/20/20 12:31 Dose: 40 mls/hr Documented by: Vancomycin HCl 2 gm/ Sodium (Chloride) 500 mls @ 250 mls/hr IV ONETIME ONE Stop: 02/21/20 02:59 Last Admin: 02/21/20 02:22 Dose: 250 mls/hr Documented by: Vancomycin HCl 1.5 gm/ Sodium (Chloride) 500 mls @ 250 mls/hr IV Q8H [facility] Last Admin: 02/22/20 12:26 Dose: Not Given Documented by: Tocilizumab 800 mg/ Sodium (Chloride) 100 mls @ 100 mls/hr IV ONETIME ONE Stop: 02/21/20 11:59 Tocilizumab 800 mg/ Sodium (Chloride) 100 mls @ 100 mls/hr IV ONETIME ONE Stop: 02/21/20 13:59 Last Admin: 02/21/20 13:40 Dose: 100 mls/hr Documented by: REMDESIVIR (EUA) 100 mg/ (Sodium Chloride) 100 mls @ 100 mls/hr IV Q24H [facility] Stop: 02/24/20 15:00 Last Admin: 02/24/20 12:48 Dose: 100 mls/hr Documented by: Potassium Chloride (Klor-Con M20) 20 meq PO ONETIME ONE Stop: 02/23/20 12:17 Last Admin: 02/23/20 14:12 Dose: 20 meq Documented by: Potassium Chloride (Klor-Con M20) 40 meq PO ONETIME ONE Stop: 02/24/20 08:01 Last Admin: 02/24/20 08:55 Dose: 40 meq Documented by: Vancomycin HCl (Pharmacy To Dose - Vancomycin) 1 dose .XX ASDIRECTED PRN PRN Reason: RX TO DOSE VANCO - Exam General: Alert, Oriented HEENT: Pupils Equal, Mucous Membr. Moist/[place] Neck: Supple Lungs: Normal Respiratory Effort, Crackles (Bibasilar) Cardiovascular: Regular Rate, Regular Rhythm GI/Abdominal Exam: Normal Bowel Sounds, Soft, Non-Tender, No Organomegaly, No Distention, No Abnormal Bruit, No Mass, Pelvis Stable Skin: Warm, Dry, Intact Neurological: No New Focal Deficit Psy/Mental Status: Alert, Normal Affect, Normal Mood Sepsis Event Note - Evaluation Sepsis Screening Result: No Definite Risk - Focused Exam Vital Signs: Vital Signs Temp Temp Pulse Resp BP BP Pulse Ox 02/25/20 12:00 83 93 L 02/25/20 11:53 97.9 F 20 133/70 02/25/20 08:32 85 92 L 02/25/20 08:30 97.9 F 24 H 140/67 02/25/20 05:30 98.1 F 78 13 118/68 94 L - Problem List & Annotations (1) Acute respiratory failure with hypoxia SNOMED Code(s): 34635329, 191189568 Code(s): J96.01 - ACUTE RESPIRATORY FAILURE WITH HYPOXIA Status: Acute Current Visit: Yes (2) Morbid obesity with BMI of 45.0-49.9, adult SNOMED Code(s): 330086700, 24637288204447 Code(s): E66.01 - MORBID (SEVERE) OBESITY DUE TO EXCESS CALORIES; Z68.42 - BODY MASS INDEX (BMI) 45.0-49.9, ADULT Status: Acute Current Visit: Yes (3) Pneumonia due to COVID-19 virus SNOMED Code(s): 721343601 Code(s): U07.1 - COVID-19; J12.89 - OTHER VIRAL PNEUMONIA Status: Acute Current Visit: Yes (4) COVID-19 virus detected SNOMED Code(s): 939060334, 182690805 Code(s): U07.1 - COVID-19 Status: Acute Current Visit: No - Problem List Review Problem List Initiated/Reviewed/Updated: Yes - My Orders Last 24 Hours: My Active Orders 02/25/20 12:31 Communication Order [RC] ASDIRECTED - Assessment Assessment:: 02/20/2020 - COVID 19 positive on 02/18/2020 - 88% on RA on presentation to ED, requiring 3L by NC to keep O2 saturation >93% - ABG on 3L NC shows pH 7.43, pCO2 40.7, pO2 63.0, HCO3 26.5, O2 saturation 91.8. - x-ray with worsening bilateral atypical pneumonia from 2 days prior - CRP 4.1, D-dimer normal - BMI 47.7 - Pt had sleep study done over a year ago and was recommended for CPAP machine but has not been using at home PLAN - Start on remdesivir 200mg x1 then 100mg IV q24h for 5 doses - Tocilizumab 800mg IV x1 - hypercoagulability: Lovenox 40mg subcut q12h. No need for full anticoagulation as d-dimer normal. - Supplemental oxygen to keep O2 saturation >93%. - Trend CRP - Keep close watch on respiratory status. - Discuss diet and exercise. - Prone as tolerated at night - Checking lipid profile and Hgb A1c in AM. - Will help patient establish PCP on discharge - Have patient follow up with PCP about further arrangements for CPAP at home - Lovenox 40mg IV q12h. 02/21/2020 - O2 supplementation uptitrated to 4L to keep O2 sat >92% overnight - Pt remained afebrile for >24h - ABG improved, on 3L by [place] shows pH 7.39, CO2 44.6, PO2 80.0, HCO3 26.3, O2 saturation 95.3 - Coughing has decreased some today - Pt did not tolerate prone positioning due to body habitus, remained prone 1 hour - CRP 7.5 up from 4.1 - D-dimer 0.19, Ferritin 319, LDH 361 up from 307 - Blood culture growing gram positive cocci 1/2, waiting final culture results - HgbA1c is 6.1% - Pt eating 100% of meals, but feels decreased appetite PLAN - Continue 100mg IV q24h for 4 more doses - Tocilizumab 800mg IV x1 - second dose - Dexamethasone 6mg IV q24h day 2 - Lovenox 40mg subcut q12h. - Will keep supplemental oxygen to keep O2 saturation >93%. - Find comfort measure for intermittent proning - Trend CRP, ferritin, LDH - Started vancomycin 1.5g IV q8h - Will watch for final culture - Diet to calorie restricted- 2500 daily - Discussed diet and exercise - Consulted dietary - Started CPAP at night 02/22/2020 - O2 supplementation weaned to 1L yesterday but at night was uptitrated to 3L. - Remains on 3L by [place] today to keep O2 saturation 92-96% - Remains afebrile, pulse 75, RR and BP normal - WBC 5.08 - H/H stable, platelets 181 - Blood culture grew staph warneri- contamination - LDH 288 down from 361, CRP 3.5 down from 7.5 - Pt eating 100% of meals, tolerates restricted calorie diet PLAN - Continue remdesivir 100mg IV q24h on day 3 - Dexamethasone 6mg IV q24h on day 3 - Changing from dexamethasone to prednisone 40mg oral in AM - Lovenox 40mg subcut q12h - Weaning O2 today to keep O2 saturation 92-96% during day, CPAP at night - Find comfort measure for intermittent proning - Trending labs - Stopped vancomycin - Keep close watch on respiratory status. - Discussed diet and exercise. - 2,500 calorie diet - CPAP at night in hospital - Follow up with PCP about further arrangements for CPAP at home 02/23/2020 Weaned to 1.5L by [place] and patient tolerating w/ O2 sat 92-96% Tolerated CPAP overnight Tolerating diet BP stable, HR 83, remains afebrile WBC 5.48, hgb 14.2, hct 43.2 D-dimer remains <0.19 Electrolytes normal Repeat troponin <0.017 - Continue remdesivir 100mg IV q24h on day 4 - Changed from dexamethasone to prednisone 40mg oral today. Day 4 of steroids - Lovenox 40mg subcut q12h - Weaning O2 today to keep O2 saturation 92-96% during day, CPAP at night - Trending labs - Keep close watch on respiratory status. - Discussed diet and exercise. - 2,500 calorie diet - CPAP at night in hospital - Follow up with PCP about further arrangements for CPAP at home 02/24/2020 O2 weaned to 1 L. Tried to go to 0.5L and O2 saturation dropped to 89% at rest. WBC 7.11, pt afebrile H/H stable Potassium 3.3 Glucose 94 LDH 306 up from 289, Ferritin normal, D-dimer normal CRP 1.0 down from 3.4 - Continue remdesivir 100mg IV q24h last dose this afternoon - Changed from dexamethasone to prednisone 40mg oral today. Day 5 of steroids - Lovenox 40mg subcut q12h - Weaning O2 today to keep O2 saturation 92-96% during day, CPAP at night - Repeat CXR today to check for pleural effusions, parapneumonic effusions - KCl 40meq po x1 - Recheck potassium level in AM 02/25/2020 O2 weaned off but still having pulse ox in the low 90s Patient significantly short of breath and still has a severe cough White count 9.6: Likely steroid effect. Potassium 3.5 AST 91 and ALT 178 Generally improved, but we will monitor him in the hospital overnight because of his shortness of breath. - Plan Plan:: Acute hypoxemic respiratory failure COVID-19, Bilateral atypical pneumonia - Changed from dexamethasone to prednisone 40mg oral today. Day 6 of 10 ofsteroids - Lovenox 40mg subcut q12h - Weaning O2 today to keep O2 saturation 92-96% during day, CPAP at night -Recommend follow-up of chest x-ray until complete resolution of left upper chest nodular density. Hypokalemia- resolved Morbid Obesity - BMI 48.3 Prediabetes -Hgb A1c 6.1% Sleep Apnea - Keep close watch on respiratory status. - Discussed diet and exercise. - 2,500 calorie diet - CPAP at night in hospital - Follow up with PCP about further arrangements for CPAP at home Bacteremia- staph adorenerelena, contamination - resolved PROPHYLAXIS DVT- Lovenox 40mg IV q12h. Will check H/H and platelet count in AM. GI- not indicated CODE STATUS: FULL CODE DISPOSITION: Patient will remain admitted for acute hypoxic respiratory failure, COVID-19, we will keep close respiratory monitoring. Wean daytime O2. Expected discharge is tomorrow.
[2020-02-26 09:08] VITALS: PULSE 87
[2020-02-26] MEDS: predniSONE 20 MG Tab PO SCH (09:11)
[2020-02-26] MEDS: Enoxaparin 40 MG/0.4 ML Syringe SUBCUT SCH (09:11)
--- NOTE | 2020-02-26 09:45 | PCM.DCSUM1 ---
Discharge Summary - Hospital Course HPI Initial Comments: The patient is a 24 y/o male, nondeclared PCP with PMH of sleep apnea and morbid obesity, presented to the ED on 02/17 and tested positive for COVID- 19, was discharged to home to [facility]. On 02/19, patient developed worsening cough, shortness of breath, feeling anxious and presented to ED again. For the last week, patient has had diarrhea, runny nose and some sinus congestion. The cough started on Thursday and has gotten progressively worse. He feels like his chest is tight and he can't take deep breaths without having cough attacks. Denies sputum production but feels like he has something to cough up, just isn't able. He denies changes in taste, no headache or dizziness. He denies chest pain, more of a tightness at left lower lung. He has had fevers up to 102 degrees at home. He has taken cough medicine at home but otherwise no medicat ions. In the ED, patient was found to be hypoxic on room air, O2 saturation 88% and was placed on 3L by NC to keep O2 saturation >93%. He does not use oxygen at home. Otherwise, pulse was 126, RR 16, temp 35.5 celsius. WBC normal, CRP 4.1, LDH 325, d-dimer normal, ferritin normal, CK 415, troponin I 0.017, Chest X-ray showed worsening bilateral atypical pneumonia. Assessment/Plan Comment:: Acute hypoxemic respiratory failure COVID-19, Bilateral atypical pneumonia -COVID 19 positive on 02/18/2020 -88% on RA on presentation to ED, requiring 3L by NC to keep O2 saturation >93% -ABG on 3L NC shows pH 7.43, pCO2 40.7, pO2 63.0, HCO3 26.5, O2 saturation 91.8. -x-ray with worsening bilateral atypical pneumonia from 2 days prior -CRP 4.1, D-dimer normal PLAN -Start on remdesivir 200mg x1 then 100mg IV q24h for 5 doses -Tocilizumab 800mg IV x1, will give another dose in 24 hours if pt has increase in O2 use, chest pain, or CRP increases -hypercoagulability: Lovenox 40mg subcut q12h. No need for full anticoagulation as d-dimer normal. -Will keep supplemental oxygen to keep O2 saturation >93%. -Trend CRP Morbid Obesity -BMI 47.7 PLAN -Keep close watch on respiratory status. -Will discuss diet and exercise prior to discharge. -Checking lipid profile and Hgb A1c in AM. Sleep Apnea -Pt had sleep study done over a year ago and was recommended for CPAP machine but has not been using at home PLAN -Will help patient establish PCP on discharge -Have patient follow up with PCP about further arrangements for CPAP at home DVT prophylaxis: Lovenox 40mg IV q12h. Will check H/H and platelet count in AM. Diagnosis: Stroke: No - Discharge Data Discharge Date: 02/26/20 Discharge Disposition: Home, Self-Care 01 Condition: Good - Referral to Home Health Primary Care Physician: PCP None - Discharge Diagnosis/Problem(s) (1) Acute respiratory failure with hypoxia SNOMED Code(s): 16205324, 764801144 ICD Code: J96.01 - ACUTE RESPIRATORY FAILURE WITH HYPOXIA Status: Acute Current Visit: Yes (2) Morbid obesity with BMI of 45.0-49.9, adult SNOMED Code(s): 193858934, 92248314104527 ICD Code: E66.01 - MORBID (SEVERE) OBESITY DUE TO EXCESS CALORIES; Z68.42 - BODY MASS INDEX (BMI) 45.0-49.9, ADULT Status: Acute Current Visit: Yes (3) Pneumonia due to COVID-19 virus SNOMED Code(s): 920332406 ICD Code: U07.1 - COVID-19; J12.89 - OTHER VIRAL PNEUMONIA Status: Acute Current Visit: Yes (4) COVID-19 virus detected SNOMED Code(s): 064303611, 758431840 ICD Code: U07.1 - COVID-19 Status: Acute Current Visit: No (5) Elevated liver enzymes SNOMED Code(s): 335594947 ICD Code: R74.8 - ABNORMAL LEVELS OF OTHER SERUM ENZYMES Status: Acute Current Visit: Yes - Patient Summary/Data Consults: Consultations 02/21/20 13:49 Consult to Client Operations Manager [CONS] Routine Hospital Course: Assessment:: 02/20/2020 - COVID 19 positive on 02/18/2020 - 88% on RA on presentation to ED, requiring 3L by NC to keep O2 saturation >93% - ABG on 3L NC shows pH 7.43, pCO2 40.7, pO2 63.0, HCO3 26.5, O2 saturation 91.8. - x-ray with worsening bilateral atypical pneumonia from 2 days prior - CRP 4.1, D-dimer normal - BMI 47.7 - Pt had sleep study done over a year ago and was recommended for CPAP machine but has not been using at home PLAN - Start on remdesivir 200mg x1 then 100mg IV q24h for 5 doses - Tocilizumab 800mg IV x1 - hypercoagulability: Lovenox 40mg subcut q12h. No need for full anticoagulation as d-dimer normal. - Supplemental oxygen to keep O2 saturation >93%. - Trend CRP - Keep close watch on respiratory status. - Discuss diet and exercise. - Prone as tolerated at night - Checking lipid profile and Hgb A1c in AM. - Will help patient establish PCP on discharge - Have patient follow up with PCP about further arrangements for CPAP at home - Lovenox 40mg IV q12h. 02/21/2020 - O2 supplementation uptitrated to 4L to keep O2 sat >92% overnight - Pt remained afebrile for >24h - ABG improved, on 3L by NC shows pH 7.39, CO2 44.6, PO2 80.0, HCO3 26.3, O2 saturation 95.3 - Coughing has decreased some today - Pt did not tolerate prone positioning due to body habitus, remained prone 1 h our - CRP 7.5 up from 4.1 - D-dimer 0.19, Ferritin 319, LDH 361 up from 307 - Blood culture growing gram positive cocci 1/2, waiting final culture results - HgbA1c is 6.1% - Pt eating 100% of meals, but feels decreased appetite PLAN - Continue 100mg IV q24h for 4 more doses - Tocilizumab 800mg IV x1 - second dose - Dexamethasone 6mg IV q24h day 2 - Lovenox 40mg subcut q12h. - Will keep supplemental oxygen to keep O2 saturation >93%. - Find comfort measure for intermittent proning - Trend CRP, ferritin, LDH - Started vancomycin 1.5g IV q8h - Will watch for final culture - Diet to calorie restricted- 2500 daily - Discussed diet and exercise - Consulted dietary - Started CPAP at night 02/22/2020 - O2 supplementation weaned to 1L yesterday but at night was uptitrated to 3L. - Remains on 3L by NC today to keep O2 saturation 92-96% - Remains afebrile, pulse 75, RR and BP normal - WBC 5.08 - H/H stable, platelets 181 - Blood culture grew staph warneri- contamination - LDH 288 down from 361, CRP 3.5 down from 7.5 - Pt eating 100% of meals, tolerates restricted calorie diet PLAN - Continue remdesivir 100mg IV q24h on day 3 - Dexamethasone 6mg IV q24h on day 3 - Changing from dexamethasone to prednisone 40mg oral in AM - Lovenox 40mg subcut q12h - Weaning O2 today to keep O2 saturation 92-96% during day, CPAP at night - Find comfort measure for intermittent proning - Trending labs - Stopped vancomycin - Keep close watch on respiratory status. - Discussed diet and exercise. - 2,500 calorie diet - CPAP at night in hospital - Follow up with PCP about further arrangements for CPAP at home 02/23/2020 Weaned to 1.5L by [place] and patient tolerating w/ O2 sat 92-96% Tolerated CPAP overnight Tolerating diet BP stable, HR 83, remains afebrile WBC 5.48, hgb 14.2, hct 43.2 D-dimer remains <0.19 Electrolytes normal Repeat troponin <0.017 - Continue remdesivir 100mg IV q24h on day 4 - Changed from dexamethasone to prednisone 40mg oral today. Day 4 of steroids - Lovenox 40mg subcut q12h - Weaning O2 today to keep O2 saturation 92-96% during day, CPAP at night - Trending labs - Keep close watch on respiratory status. - Discussed diet and exercise. - 2,500 calorie diet - CPAP at night in hospital - Follow up with PCP about further arrangements for CPAP at home 02/24/2020 O2 weaned to 1 L. Tried to go to 0.5L and O2 saturation dropped to 89% at rest. WBC 7.11, pt afebrile H/H stable Potassium 3.3 Glucose 94 LDH 306 up from 289, Ferritin normal, D-dimer normal CRP 1.0 down from 3.4 - Continue remdesivir 100mg IV q24h last dose this afternoon - Changed from dexamethasone to prednisone 40mg oral today. Day 5 of steroids - Lovenox 40mg subcut q12h - Weaning O2 today to keep O2 saturation 92-96% during day, CPAP at night - Repeat CXR today to check for pleural effusions, parapneumonic effusions - KCl 40meq po x1 - Recheck potassium level in AM 02/25/2020 O2 weaned off but still having pulse ox in the low 90s Patient significantly short of breath and still has a severe cough White count 9.6: Likely steroid effect. Potassium 3.5 AST 91 and ALT 178 Generally improved, but we will monitor him in the hospital overnight because of his shortness of breath. 02/26/2020 Pedro is doing well. Continues off of O2. He is on day 7 of steroids. COVID screen came back positive. Patient will be discharged home on 3 more days of prednisone and cough medicine. Liver enzymes did increase over the last couple of days likely multifactorial including fatty liver, coronavirus, and possibly medications. He will need to follow-up on this as an outpatient. - Patient Instructions Other/Special Instructions: Please finish prednisone. Follow up with your PCP in a week to recheck your liver enzymes. They increased over the last 2 weeks. Your liver is still functioning normally. - Discharge Plan *PRESCRIPTION DRUG MONITORING PROGRAM REVIEWED*: No *COPY OF PRESCRIPTION DRUG MONITORING REPORT IN PATIENT KIRSTY: No Prescriptions/Med Rec: predniSONE 40 mg PO DAILY #3 tablet Chlorpheniramine/HYDROcodone [Tussionex Pennkinetic] 5 ml PO Q12H #60 ml Home Medications: Home Meds Acetaminophen [Tylenol] 650 mg PO Q4H PRN tablet 02/26/20 [Rx] Chlorpheniramine/HYDROcodone [Tussionex Pennkinetic] 5 ml PO Q12H #60 ml 02/26/20 [Rx] predniSONE 40 mg PO DAILY #3 tablet 02/26/20 [Rx] Oxygen Therapy Mode: Room Air Patient Handouts: COVID-19, Prediabetes Eating Plan, Prevent the Spread of COVID-19 if You Are Sick - [facility] Forms: Return to Work/Inpatient [facility] Referrals: Tae Medeiros NP [Nurse Practitioner] - 03/02/20 11:00 am (This appt. is for follow up care and establish care with Primary Doctor. Please arrive at 10:30 for check in have photo ID and insurance cared.) - Discharge Summary/Plan Comment DC Time >30 min.: Yes Discharge Summary/Plan Comment: Discharged home in good condition. Follow-up with primary care provider next week. Follow-up with state health officials. Liver enzymes have increased over the last couple of days, please get recheck as an outpatient. - General Info Date of Service: 02/26/20 Admission Dx/Problem (Free Text: Admission Diagnosis/Problem Admission Diagnosis/Problem Acute hypoxic respiratory failure, COVID-19 Pneumonia Subjective Update: Pedro is doing well. Sleeping well, eating well, and not short of breath. He does have a dry cough. - Review of Systems General: Reports: No Symptoms HEENT: Reports: No Symptoms Pulmonary: Reports: Cough Cardiovascular: Reports: No Symptoms Gastrointestinal: Reports: No Symptoms Musculoskeletal: Reports: No Symptoms Neurological: Reports: No Symptoms Psychiatric: Reports: No Symptoms - Patient Data Vitals - Most Recent: Last Vital Signs Temp 98.1 F 02/26/20 06:34 Pulse 87 02/26/20 08:00 Resp 14 02/26/20 06:34 BP 126/42 L 02/26/20 06:34 Pulse Ox 92 L 02/26/20 08:00 Weight - Most Recent: 155.174 kg I&O - Last 24 hours: Intake & Output 02/25/20 02/26/20 02/26/20 22:59 06:59 14:59 Intake Total 2640 800 Output Total 2700 850 Balance -60 -50 Lab Results - Last 24 hrs: Laboratory Results - last 24 hr 02/26/20 Range/Units 05:33 Sodium 140 (136-145) mEq/L Potassium 3.6 (3.5-5.1) mEq/L Chloride 104 (98-107) mEq/L Carbon Dioxide 29 (21-32) mEq/L Anion Gap 10.6 (5-15) BUN 13 (7-18) mg/dL Creatinine 1.1 (0.7-1.3) mg/dL Est Cr Clr Drug Dosing 110.29 mL/min Estimated GFR (MDRD) > 60 (>60) mL/min BUN/Creatinine Ratio 11.8 L (14-18) Glucose 92 (74-106) mg/dL Calcium 8.8 (8.5-10.1) mg/dL Total Bilirubin 0.4 (0.2-1.0) mg/dL AST 112 H (15-37) U/L ALT 240 H (16-63) U/L Alkaline Phosphatase 35 L (46-116) U/L Total Protein 6.1 L (6.4-8.2) g/dl Albumin 3.1 L (3.4-5.0) g/dl Globulin 3.0 gm/dL Albumin/Globulin Ratio 1.0 (1-2) ANGELICA Results - Last 24 hrs: Microbiology 02/22/20 00:14 Aerobic Blood Culture - Preliminary Blood - Venous - Lab Draw NO GROWTH AFTER 4 DAYS Anaerobic Blood Culture - Preliminary NO GROWTH AFTER 4 DAYS 02/22/20 00:08 Aerobic Blood Culture - Preliminary Blood - Venous NO GROWTH AFTER 4 DAYS Anaerobic Blood Culture - Preliminary NO GROWTH AFTER 4 DAYS 02/20/20 00:07 Aerobic Blood Culture - Final Blood - Venous - Lab Draw Staphylococcus Warneri Anaerobic Blood Culture - Preliminary NO GROWTH AFTER 6 DAYS 02/19/20 23:57 Aerobic Blood Culture - Preliminary Blood - Venous NO GROWTH AFTER 6 DAYS Anaerobic Blood Culture - Preliminary NO GROWTH AFTER 6 DAYS Med Orders - Current: Current Medications Acetaminophen (Tylenol) 650 mg PO Q4H PRN PRN Reason: Pain/Fever Last Admin: 02/20/20 12:46 Dose: 650 mg Documented by: Enoxaparin Sodium (Lovenox) 40 mg SUBCUT Q12H [facility] Last Admin: 02/26/20 09:11 Dose: 40 mg Documented by: Guaifenesin (Robitussin) 200 mg PO Q4H PRN PRN Reason: Cough Last Admin: 02/25/20 20:04 Dose: 200 mg Documented by: Prednisone (Prednisone) 40 mg PO DAILY [facility] Last Admin: 02/26/20 09:11 Dose: 40 mg Documented by: Discontinued Medications Dexamethasone (Dexamethasone) 6 mg IVPUSH Q24H [facility] Last Admin: 02/22/20 11:03 Dose: 6 mg Documented by: Enoxaparin Sodium (Lovenox) 40 mg SUBCUT Q12H [facility] Last Admin: 02/22/20 21:49 Dose: 40 mg Documented by: Tocilizumab 400 mg/Tocilizumab 400 mg/ Sodium Chloride 100 mls @ 100 mls/hr IV ONETIME ONE Stop: 02/20/20 09:59 Last Admin: 02/20/20 10:04 Dose: 100 mls/hr Documented by: REMDESIVIR (EUA) 200 mg/ (Sodium Chloride) 250 mls @ 250 mls/hr IV ONETIME ONE Stop: 02/20/20 10:59 Last Admin: 02/20/20 11:26 Dose: 250 mls/hr Documented by: REMDESIVIR (EUA) 100 mg/ (Sodium Chloride) 100 mls @ 100 mls/hr IV Q24H [facility] Lactated Ringer's (Ringers, Lactated) 1,000 mls @ 40 mls/hr IV ASDIRECTED [facility] Last Admin: 02/20/20 12:31 Dose: 40 mls/hr Documented by: Vancomycin HCl 2 gm/ Sodium (Chloride) 500 mls @ 250 mls/hr IV ONETIME ONE Stop: 02/21/20 02:59 Last Admin: 02/21/20 02:22 Dose: 250 mls/hr Documented by: Vancomycin HCl 1.5 gm/ Sodium (Chloride) 500 mls @ 250 mls/hr IV Q8H [facility] Last Admin: 02/22/20 12:26 Dose: Not Given Documented by: Tocilizumab 800 mg/ Sodium (Chloride) 100 mls @ 100 mls/hr IV ONETIME ONE Stop: 02/21/20 11:59 Tocilizumab 800 mg/ Sodium (Chloride) 100 mls @ 100 mls/hr IV ONETIME ONE Stop: 02/21/20 13:59 Last Admin: 02/21/20 13:40 Dose: 100 mls/hr Documented by: REMDESIVIR (EUA) 100 mg/ (Sodium Chloride) 100 mls @ 100 mls/hr IV Q24H [facility] Stop: 02/24/20 15:00 Last Admin: 02/24/20 12:48 Dose: 100 mls/hr Documented by: Potassium Chloride (Klor-Con M20) 20 meq PO ONETIME ONE Stop: 02/23/20 12:17 Last Admin: 02/23/20 14:12 Dose: 20 meq Documented by: Potassium Chloride (Klor-Con M20) 40 meq PO ONETIME ONE Stop: 02/24/20 08:01 Last Admin: 02/24/20 08:55 Dose: 40 meq Documented by: Vancomycin HCl (Pharmacy To Dose - Vancomycin) 1 dose .XX ASDIRECTED PRN PRN Reason: RX TO DOSE VANCO - Exam Quality Assessment: Denies: Supplemental Oxygen General: Reports: Alert, Oriented HEENT: Reports: Pupils Equal, Mucous Membr. Moist/[place] Neck: Reports: Supple Lungs: Reports: Clear to Auscultation, Normal Respiratory Effort, Decreased Breath Sounds Cardiovascular: Reports: Regular Rate, Regular Rhythm GI/Abdominal Exam: Normal Bowel Sounds, Soft, Non-Tender, No Organomegaly, No Distention, No Abnormal Bruit Back Exam: Reports: Normal Inspection, Full Range of Motion Extremities: Normal Inspection, Normal Range of Motion, Non-Tender, No Pedal Edema, Normal Capillary Refill Skin: Reports: Warm, Dry, Intact Psy/Mental Status: Reports: Alert, Normal Affect, Normal Mood
[2020-02-26 12:42] VITALS: BP 148/96
== END 2020-02-26 11:34 | disposition home or self-care (01) | DRG 177 ==
LOC: JD.ED 20:24 → JD.MS 23:14
PROVIDERS: ADMIT Internal Medicine; ATTEND Internal Medicine
PROC: XW043E5 Introduction of Remdesivir Anti-infective into Central Vein, Percutaneous Approach, New Technology Group 5 (ICD-10-PCS; principal; 2020-02-20)
DX: U07.1 COVID-19 (principal); J12.89 Other viral pneumonia; J96.01 Acute respiratory failure with hypoxia; Z68.42 Body mass index [BMI] 45.0-49.9, adult; E66.01 Morbid (severe) obesity due to excess calories; G47.33 Obstructive sleep apnea (adult) (pediatric)
CPT/HCPCS: 36415; 36600; 71045; 71045-26; 80048; 80053; 80061; 80202; 82550; 82728; 82803; 82962; 83036; 83615; 83735; 83880; 84100; 84145; 84484; 85007; 85025; 85027; 85379; 85610; 86140; 86738; 87040; 87077; 87186; 93010; 94660; 94761; 99222; 99232; 99239; 99283; 99284-25; A9270-GY; J1100; J1650; J3262; J3370; J7040; J7050; J7120; J7512; U0002

== ENCOUNTER 2021-07-07 19:24 | Emergency (ER) | payer OTHER ==
[2021-07-07 19:37] VITALS: BP 158/86; PULSE 123
[2021-07-07 20:20] LABS: CORONAVIRUS COVID-19 NAA NEGATIVE (NEGATIVE)
--- NOTE | 2021-07-07 20:27 | EDM.PDOC ---
ED HPI GENERAL MEDICAL PROBLEM - General Chief Complaint: Respiratory Problem Stated Complaint: COUGH Time Seen by Provider: 07/07/21 19:39 Source of Information: Reports: Patient History Limitations: Reports: No Limitations - History of Present Illness INITIAL COMMENTS - FREE TEXT/NARRATIVE: 25-year-old male presents the emergency department today with complaints of a slight cough for approximately the past week. Patient states he has an intermittent headache. Also notes that he has some diarrhea that started today. States he presented he is worried that he may have Covid. He was hospitalized for diagnosis of Covid in June 2020. Patient states he has had one Covid vaccine however has not had his second vaccine. He has not had his influenza vaccine. Denies any significant past medical history. Denies any prescription medications. Denies smoking history. Denies any history of respiratory or heart problems. Patient however is morbidly obese with a BMI of 53. He does not have a primary care provider. - Related Data Allergies Allergy/AdvReac Type Severity Reaction Status Date / Time No Known Allergies Allergy Verified 07/07/21 19:32 Home Meds: Home Meds . [No Known Home Meds] 07/07/21 [History] Past Medical History - Past Health History Medical/Surgical History: Denies Medical/Surgical History Other HEENT History: tongue swelling ? allergic reaction - Infectious Disease History Infectious Disease History: Reports: Novel Coronavirus Social & Family History - Family History Family Medical History: No Pertinent Family History - Caffeine Use Caffeine Use: Reports: Soda - Living Situation & Occupation Occupation: Student ED ROS GENERAL - Review of Systems Review Of Systems: Comprehensive ROS is negative, except as noted in HPI. ED EXAM, GENERAL - Physical Exam Exam: See Below Exam Limited By: No Limitations General Appearance: Alert, WD/WN, No Apparent Distress Ears: Normal External Exam, Hearing Grossly Normal Nose: Normal Inspection Throat/Mouth: Normal Inspection, Normal Lips, Normal Voice, No Airway Compromise Head: Atraumatic Neck: Normal Inspection, Supple Respiratory/Chest: No Respiratory Distress, Lungs Clear, Normal Breath Sounds, No Accessory Muscle Use, Chest Non-Tender Cardiovascular: Normal Peripheral Pulses, Regular Rate, Rhythm, No Edema, No Murmur GI/Abdominal: Normal Bowel Sounds, Soft, Non-Tender, No Distention (Male) Exam: Deferred Rectal (Males) Exam: Deferred Back Exam: Normal Inspection, Full Range of Motion Extremities: Normal Inspection, Normal Range of Motion, Non-Tender, No Pedal Edema, Normal Capillary Refill Neurological: Alert, Oriented, Normal Cognition Psychiatric: Normal Affect, Normal Mood Skin Exam: Warm, Dry, Intact, Normal Color, No Rash Lymphatic: No Adenopathy Course - Vital Signs Text/Narrative:: As stated above, patient presents with cough, headache and diarrhea that started today. Cough and headache has been intermittent for the past week or so. Physical exam is unremarkable. Lungs are clear heart rate is regular abdomen is soft and nontender. He is not ill-appearing. He is however tachycardic at a rate of 123 at the time of nursing triage. However, this has resolved at the time of my exam. Patient will be tested for Covid and influenza a. I do not feel that any further testing is warranted at this time. Last Recorded V/S: Last Vital Signs Temp 97.3 F 07/07/21 19:35 Pulse 123 H 07/07/21 19:35 Resp 17 07/07/21 19:35 BP 158/86 H 07/07/21 19:35 Pulse Ox 97 07/07/21 19:35 - Orders/Labs/Meds Labs: Laboratory Tests 07/07/21 Range/Units 19:33 Influenza Type A RNA Negative (NEGATIVE) Influenza Type B RNA Negative (NEGATIVE) SARS-CoV-2 RNA (JOSÉ MIGUEL) Negative (NEGATIVE) - Re-Assessments/Exams Free Text/Narrative Re-Assessment/Exam: 07/07/21 20:24 Patient's Covid and influenza swabs are negative. He will be discharged home. It has been strongly recommended that he receive his second Covid vaccine as well as his influenza vaccine and follow-up with a primary care provider. Departure - Departure Time of Disposition: 20:26 Disposition: Home, Self-Care 01 Condition: Good Clinical Impression: Viral upper respiratory tract infection with cough - Discharge Information Instructions: Viral Respiratory Infection, [id number] Referrals: PCP,None [Primary Care Provider] - Additional Instructions: You were seen in the emergency department today with complaints of a 1 week history of cough and intermittent headache. Had diarrhea that started today. Physical exam was essentially unremarkable. You were tested for Covid and influenza and these were both negative. I strongly recommend that you get your second Covid vaccine as soon as possible. Also recommend that you get your influenza vaccines. Be sure to get plenty of rest and drink plenty of fluids. May take Tylenol 650 mg every 4 hours as needed for headache or ibuprofen 600 mg every 6-8 hours as needed for headache. Should your condition worsen or change, do not hesitate returning the emergency department. Sepsis Event Note (ED) - Evaluation Sepsis Screening Result: No Definite Risk - Focused Exam Vital Signs: Vital Signs Temp Pulse Resp BP Pulse Ox 07/07/21 19:35 97.3 F 123 H 17 158/86 H 97
== END 2021-07-07 20:37 | disposition home or self-care (01) ==
LOC: JD.ED 19:24
DX: J06.9 Acute upper respiratory infection, unspecified (principal); Z20.822 Contact with and (suspected) exposure to COVID-19
CPT/HCPCS: 0240U; 99283

== ENCOUNTER 2021-10-20 20:11 | Emergency (ER) | payer OTHER ==
[2021-10-20 20:25] VITALS: BP 149/125; PULSE 128
[2021-10-20 21:17] LABS: CORONAVIRUS COVID-19 NAA NEGATIVE (NEGATIVE)
[2021-10-20] MEDS ORDERED: Albuterol 6.7 GM Inhaler INH ONE (21:44)
== END 2021-10-20 22:01 | disposition home or self-care (01) ==
LOC: JD.ED 20:11
DX: J10.1 Influenza due to other identified influenza virus with other respiratory manifestations (principal); J40 Bronchitis, not specified as acute or chronic; Z86.16 Personal history of COVID-19; Z20.822 Contact with and (suspected) exposure to COVID-19
CPT/HCPCS: 0241U; 71046; 94640; 99283; A9270; 99284

== ENCOUNTER 2021-11-07 20:36 | Emergency (ER) | payer BC, OTHER ==
[2021-11-07 20:49] VITALS: BP 141/65; PULSE 137
[2021-11-07] MEDS ORDERED: Sodium Chloride 0.9% 10 ML Syringe FLUSH PRN (20:57)
[2021-11-07] MEDS ORDERED: Iopamidol 755 Mg/ML 100 ML Bottle IVPUSH ONE (21:30)
[2021-11-07] MEDS ORDERED: Iopamidol 755 MG/ML 50 ML Bottle IVPUSH ONE (21:30)
[2021-11-07] MEDS ORDERED: Sodium Chloride 0.9% 10 ML Syringe FLUSH ONE (21:30)
[2021-11-07] MEDS: Sodium Chloride 0.9% 100 ML IV SCH ×2 (21:41→21:51)
== END 2021-11-07 22:50 | disposition home or self-care (01) ==
LOC: JD.ED 20:36
DX: R05.9 Cough, unspecified (principal); R79.89 Other specified abnormal findings of blood chemistry; E66.9 Obesity, unspecified; Z68.43 Body mass index [BMI] 50.0-59.9, adult; Z86.16 Personal history of COVID-19
CPT/HCPCS: 36415; 71275; 80053; 84484; 93005; 99283; J3490; Q9967